=== PATIENT | female | born 1965 | race Caucasian/White ===

== ENCOUNTER 2020-02-07 23:05 | Inpatient (IN) ==
[2020-02-07] MEDS ORDERED: DUONEB (A & A) INH ONE (23:19)
--- NOTE | 2020-02-07 23:28 | PROVIDER DOCUMENTATION ---
HPI-Respiratory General - General Stated Complaint: SOB Time Seen by Provider: 02/07/20 23:14 Source: EMS, RN notes reviewed Unable to obtain history due to:: altered Allergies/Adverse Reactions: Patient Allergies Allergy/AdvReac Type Severity Reaction Status Date / Time diazepam [From Valium] Allergy Unknown Verified 08/11/19 00:28 Hydantoins Allergy Unknown Verified 08/11/19 00:28 Penicillins Allergy Unknown Verified 08/11/19 00:28 phenytoin [From Dilantin] Allergy Unknown Verified 08/11/19 00:28 promethazine [From Phenergan] Allergy Unknown Verified 08/11/19 00:28 simvastatin Allergy Unknown Verified 08/11/19 00:28 Sulfa (Sulfonamide Allergy Unknown Verified 08/11/19 00:28 Antibiotics) Home Medications: Home Medication List Medication Instructions Recorded Confirmed Last Taken Type Aspirin [Aspirin EC] 81 mg PO DAILY 08/11/19 02/08/20 09/22/19 07:00 History Estradiol [Estrace] 1 mg PO DAILY 08/11/19 02/08/20 09/22/19 07:00 History Ferrous Sulfate 325 mg PO HS 08/11/19 02/08/20 09/21/19 21:00 History Glimepiride 4 mg PO DAILY 08/11/19 02/08/20 09/22/19 07:00 History Levothyroxine Sodium [Tirosint] 50 mcg PO HS 08/11/19 02/08/20 09/21/19 21:00 History Meloxicam 15 mg PO DAILY 08/11/19 09/22/19 09/22/19 07:00 History Metformin HCl [Glucophage] 1,000 mg PO BID 08/11/19 02/08/20 09/22/19 07:00 History Pantoprazole Sodium [Protonix] 40 mg PO DAILY 08/11/19 09/22/19 09/22/19 07:00 History Sitagliptin Phosphate [Januvia] 100 mg PO DAILY 08/11/19 09/22/19 09/22/19 07:00 History Melatonin 5 mg PO QHS #30 tab 09/10/19 02/08/20 09/21/19 21:00 Rx Cholecalciferol (Vit D3) [Vitamin 2,000 unit PO DAILY tab 11/05/19 02/08/20 Unknown Rx D3] Cyanocobalamin [Vitamin B-12] 500 microgm PO DAILY tab 11/05/19 02/08/20 Unknown Rx Gabapentin [Neurontin] 800 mg PO BID 30 Days #120 cap 11/05/19 02/08/20 Unknown Rx Insulin Human Regular [Humulin R] 0 unit SUBQ 0700,1100,1600,2100 11/05/1902/07 Unknown Rx #10 ml Linaclotide [Linzess] 145 mcg PO DAILY@0700 #30 cap 11/05/19 02/08/20 Unknown Rx Metoprolol Succinate E.r. [Toprol 25 mg PO DAILY #30 tab 11/05/19 02/08/20 Unknown Rx Xl] Quetiapine [Seroquel] 200 mg PO QHS tab 11/05/19 Unknown Rx Tramadol [Ultram] 50 mg PO BID PRN PRN 30 Days #60 11/06/19 Unknown Rx tab Acetaminophen [Arthritis Pain 650 mg PO Q6H 02/08/20 02/08/20 Unknown History Relief] Albuterol 2.5MG/Ipratrop 0.5MG 2 puff INH Q4H 02/08/20 02/08/20 Unknown History [Duoneb (A & A)] Albuterol Sulfate Inhaler 2 puff INH Q6H PRN PRN 02/08/20 02/08/20 Unknown History [Ventolin Hfa] Benzocaine/Menthol [Cepacol Sore 1 cap PO PRN PRN 02/08/20 02/08/20 Unknown History Throat Lozenge] Bisacodyl [Dulcolax] 10 mg VT DAILY 02/08/20 02/08/20 Unknown History Cetirizine HCl [Zyrtec] 10 mg PO QHS 02/08/20 02/08/20 Unknown History Clozapine [Clozaril] 50 mg PO DAILY@1200 02/08/20 02/08/20 Unknown History Clozapine [Clozaril] 125 mg PO 1700 02/08/20 02/08/20 Unknown History Fluticasone 50 Mcg Nasal [place] 1 spray INTRANASAL DAILY 02/08/20 02/08/20 Unknown History [Flonase] Furosemide [Lasix] 1 tab PO DAILY 02/08/20 02/08/20 Unknown History Lamotrigine [Lamictal] 100 mg PO HS 02/08/20 02/08/20 Unknown History Lamotrigine [Lamictal] 100 mg PO QAM 02/08/20 02/08/20 Unknown History Mag Hydrox/Al Hydrox/Simeth 30 ml PO 4XDAY PRN 02/08/20 02/08/20 Unknown History [Maalox Plus] - History of Present Illness-Resp Nature of Presenting Problem: Pt is a 54 y/o female who is transferred from [facility] with c/o SOb since this morning. The pt is SOB and hx is obtained from the EMS and RN. Per EMS the pt has been SOB since today morning. Got a breathing treatment in the morning. The EMS is unaware of fever. On initial eval of EMS pt was saturating 74% on RA and with 15 L NR it was upto a 90%. Pt currently severely SOB with use of accessory muscles and crackles. On room air desaturated to 81% and with NR on 15 L back in 90's Review of Systems - Adult - REVIEW OF SYSTEMS - ADULT ROS:: unobtainable per condition Constitutional: reports: see HPI Past History - Adult - PAST MEDICAL HISTORY-ADULT Review of Records: reports: Old Records Reviewed, Nursing Assessment Review, Medications Reviewed, Social history reviewed & non-contributory. Physical Exam-General - PHYSICAL EXAM-ADULT Initial Vital Signs Reviewed: Yes - CONSTITUTIONAL General Appearance: moderate distress, obtunded - EYES Eyes: PERRL/EOMI - HEAD, EARS, NOSE, MOUTH & THROAT HENMT: normocephalic/atraumatic, moist mucous membranes - NECK Neck: supple - RESPIRATORY Respiratory: respiratory distress, decreased breath sounds, accessory muscle use , rhonchi, increased rate - CARDIOVASCULAR Cardiovascular: no murmur, tachycardia - GASTROINTESTINAL (ABDOMEN) Abdominal Exam: non tender, soft - MUSCULOSKELETAL Back Exam: normal inspection Extremity: normal inspection, no pedal edema Peripheral Pulses: dorsalis-pedis (R): 2+, dorsalis-pedis (L): 2+ - SKIN Integumentary: normal color, warm/dry - NEUROLOGIC Neurologic: no motor/sensory deficits - PSYCHIATRIC Psych/Mental Status: other (restless, unable to evaluate due to pt condition) Progress - PLAN OF CARE/RESULTS Progress/Plan/Lab Results: Vital Signs - 8 hr 02/07/20 23:08 02/07/20 23:20 02/07/20 23:45 Temperature Pulse Rate 123 H 138 H Respiratory Rate 30 H 20 Blood Pressure 105/74 131/112 O2 Sat by Pulse Oximetry 82 L 92 L 97 02/07/20 23:50 02/08/20 00:15 02/08/20 00:37 Temperature 101.3 F H Pulse Rate 131 H 132 H 129 H Respiratory Rate 30 H 31 H 27 H Blood Pressure 175/73 O2 Sat by Pulse Oximetry 100 100 100 02/08/20 00:39 02/08/20 00:45 02/08/20 01:15 Temperature Pulse Rate 130 H 133 H Respiratory Rate 28 H 28 H Blood Pressure 167/81 159/65 111/69 O2 Sat by Pulse Oximetry 100 100 02/08/20 01:45 02/08/20 02:15 02/08/20 02:52 Temperature 101.7 F H Pulse Rate 134 H 130 H 121 H Respiratory Rate 28 H 24 23 Blood Pressure 142/60 131/66 113/55 O2 Sat by Pulse Oximetry 100 100 100 02/08/20 03:15 02/08/20 03:45 Temperature Pulse Rate 120 H 115 H Respiratory Rate 24 20 Blood Pressure 111/58 106/52 O2 Sat by Pulse Oximetry 99 100 Laboratory Results - last 24 hr 02/07/20 02/07/20 02/07/20 23:15 23:15 23:15 WBC 8.26 RBC 4.28 Hgb 12.9 Hct 40.4 MCV 94.4 MCH 30.1 MCHC 31.9 L RDW Std Deviation 13.4 Plt Count 204 MPV 9.4 Immature Gran % (Auto) 0.5 Neut % (Auto) 81.0 H Lymph % (Auto) 6.7 L [place] % (Auto) 11.1 H Eos % (Auto) 0.6 Baso % (Auto) 0.1 Immature Gran # (Auto) 0.04 Neut # (Auto) 6.69 H Lymph # (Auto) 0.55 L [place] # (Auto) 0.92 H Eos # (Auto) 0.05 Baso # (Auto) 0.01 D-Dimer, Quantitative 1.05 H Specimen Type Sample Site pH pCO2 pO2 HCO3 Base Excess Oxyhemoglobin ABG O2 Sat (Calculated) ABG O2 Saturation ABG Carboxyhemoglobin ABG Methemoglobin Colby Test A-a O2 Difference Total Hemoglobin Lactate Liter Flow Blood Gas Modality Vent Mode FiO2 % Inspiratory BiPAP Expiratory BiPAP Sodium Potassium Chloride Carbon Dioxide Anion Gap BUN Creatinine Estimated GFR/1.73 m2 BUN/Creatinine Ratio Glucose Calculated Osmolality Calcium Total Bilirubin AST ALT Alkaline Phosphatase Creatine Kinase Creatine Kinase Index CK-MB (CK-2) Troponin T High Sens Ryr-[id number]-Ikpxmrvvxqv Pept Total Protein Albumin Globulin Albumin/Globulin Ratio Plasma Lactate 3.7 H 02/07/20 02/07/20 02/07/20 23:25 23:47 23:47 WBC RBC Hgb Hct MCV MCH MCHC RDW Std Deviation Plt Count MPV Immature Gran % (Auto) Neut % (Auto) Lymph % (Auto) [place] % (Auto) Eos % (Auto) Baso % (Auto) Immature Gran # (Auto) Neut # (Auto) Lymph # (Auto) [place] # (Auto) Eos # (Auto) Baso # (Auto) D-Dimer, Quantitative Specimen Type ARTERIAL Sample Site L RADIAL pH 7.38 pCO2 45 pO2 51 L HCO3 25.4 Base Excess 1.0 Oxyhemoglobin 85.9 L* ABG O2 Sat (Calculated) 15.7 ABG O2 Saturation 88.6 L ABG Carboxyhemoglobin 2.20 ABG Methemoglobin 0.8 Colby Test YES A-a O2 Difference 606.0 Total Hemoglobin 13.0 Lactate 4.00 H* Liter Flow 15.0 Blood Gas Modality NRB Vent Mode FiO2 % 100.0 Inspiratory BiPAP Expiratory BiPAP Sodium 132 L Potassium 4.4 Chloride 90 L Carbon Dioxide 26 Anion Gap 16 BUN 9 Creatinine 0.7 Estimated GFR/1.73 m2 > 60 BUN/Creatinine Ratio 13 Glucose 310 H Calculated Osmolality 275 Calcium 9.1 Total Bilirubin 0.30 AST 16 ALT 10 Alkaline Phosphatase 78 Creatine Kinase 397 H Creatine Kinase Index 0.4 CK-MB (CK-2) 1.66 Troponin T High Sens [id number]-Azjnxcykhbc Pept 424 H Total Protein 6.4 Albumin 3.9 Globulin 3.0 Albumin/Globulin Ratio 2.0 Plasma Lactate 02/07/20 02/08/20 23:47 02:45 WBC RBC Hgb Hct MCV MCH MCHC RDW Std Deviation Plt Count MPV Immature Gran % (Auto) Neut % (Auto) Lymph % (Auto) [place] % (Auto) Eos % (Auto) Baso % (Auto) Immature Gran # (Auto) Neut # (Auto) Lymph # (Auto) [place] # (Auto) Eos # (Auto) Baso # (Auto) D-Dimer, Quantitative Specimen Type ARTERIAL Sample Site L BRACHIAL pH 7.48 H pCO2 39 pO2 312 H HCO3 29.0 H Base Excess 5.2 H Oxyhemoglobin 96.5 ABG O2 Sat (Calculated) 17.9 ABG O2 Saturation 98.5 ABG Carboxyhemoglobin 0.80 ABG Methemoglobin 1.1 Colby Test NO A-a O2 Difference 352.0 Total Hemoglobin 12.6 Lactate 3.80 H Liter Flow Blood Gas Modality BI PAP Vent Mode BIPAP FiO2 % 100.0 Inspiratory BiPAP 14.0 Expiratory BiPAP 6.0 Sodium Potassium Chloride Carbon Dioxide Anion Gap BUN Creatinine Estimated GFR/1.73 m2 BUN/Creatinine Ratio Glucose Calculated Osmolality Calcium Total Bilirubin AST ALT Alkaline Phosphatase Creatine Kinase Creatine Kinase Index CK-MB (CK-2) Troponin T High Sens 10 Ddf-U-Vmidrixjlyh Pept Total Protein Albumin Globulin Albumin/Globulin Ratio Plasma Lactate Orders Category Date Time Status Admit - [facility] Routine [id number] 02/08/20 03:05 Active [place] Insertion ORDERED Care 02/08/20 00:04 Completed Isolation [Isolation Precautions Setup] NOW Care 02/08/20 00:51 Active Nursing [Misc. NRSG Communication Order] DIRECTED Care 02/08/20 00:31 Completed Restraint Initiate NonViolent ONCE Care 02/08/20 00:15 Active CHEST-1 VIEW [RAD] Stat Exams 02/07/20 23:15 Taken ABG [RESP] Routine Lab 02/07/20 23:25 Completed ABG [RESP] Routine Lab 02/08/20 02:45 Completed BLOOD CULTURE [BLDCUL] Stat Lab 02/07/20 23:19 Ordered C REACTIVE PROT QUANT [CHEM] Stat Lab 02/08/20 02:17 Received CBC WITH ELECTRONIC DIFF [HEME] Stat Lab 02/07/20 23:15 Completed CK PROFILE [SP CHEM] Stat Lab 02/07/20 23:47 Completed COMPREHENSIVE METABOLIC PANEL [CHEM] Stat Lab 02/07/20 23:47 Completed D-DIMER [COAG] Stat Lab 02/07/20 23:15 Completed FERRITIN Stat Lab 02/08/20 02:17 Received LACTATE, PLASMA [CHEM] Stat Lab 02/07/20 23:15 Completed LDH [CHEM] Stat Lab 02/08/20 02:17 Received NORFOLK COVID19 [NORFOLK] Routine Lab 02/08/20 00:45 Received PRO B-NATRIURETIC PEPTIDE Stat Lab 02/07/20 23:47 Completed TROPONIN T HIGH SENSITIVITY Stat Lab 02/07/20 23:47 Completed 0.9% Sodium Chloride Inj [Ns] 1,000 ml Med 02/08/20 03:15 Active IV 75 mls/hr 0.9% Sodium Chloride Inj [Ns] 1,000 ml Med 02/08/20 04:31 Active IV 75 mls/hr Acetaminophen [Tylenol] Med 02/08/20 01:00 Discontinued 650 mg VT NOW ONE Albuterol 2.5MG/Ipratrop 0.5MG [Duoneb (A & A)] Med 02/07/20 23:19 Discontinued 3 ml INH NOW ONE Enoxaparin [Lovenox] Med 02/08/20 02:07 Discontinued 40 mg SUBQ NOW ONE Furosemide [Lasix] Med 02/08/20 00:04 Discontinued 40 mg IV NOW ONE Ketorolac [Toradol] Med 02/08/20 02:16 Discontinued 30 mg IV NOW ONE Levofloxacin 750 mg/D5w [Levaquin 750 mg/D5w] Med 02/08/20 00:04 Discontinued 750 mg in 150 ml IV NOW Pharmacy Order [Vancomycin IV Per Pharmacy] Med 02/08/20 02:30 Pending 1 each MISC DIRECTED Vancomycin 1 gm/Ns Med 02/08/20 03:00 Active 1 gm in 250 ml IV Q2H Aerosol Treatments Routine Oth 02/07/20 23:20 Active Aerosol Treatments Stat Oth 02/07/20 23:20 Active BIPAP Stat Oth 02/07/20 23:20 Active Transfer/Admit Order [TRANSFER] Routine Transfer 02/08/20 03:16 Completed The ABG repeat showed pO2 310, FiO2 was decreased to 50% from 100%. Temp improving after toradol. Result Diagrams: 02/07/20 23:15 02/07/20 23:47 - CONSULTS/PCP/HOSPITALIST Notification #1 *Consult/PCP/Hospitalist*: pt d/w Dr Angelo Time Discussed: 02:30 Consult Disposition: Admit (recommended to repeat ABG and if O2 less consider intubation. If O2 improved can transfer on BiPAP) Departure - Departure Date of Disposition Decision: 04/17/20 Time of Disposition Decision: 02:45 DIAGNOSIS: Dyspnea, Respiratory failure with hypoxia, COPD with exacerbation, Suspected COVID-19 virus infection, Pneumonia due to organism Disposition: ADMITTED INPATIENT 09 Certified Medical Emergency: Emergent Condition: Stable - Critical Care Note This patient required my direct & personal management of CC.: Yes Total Time (mins): 55 Critical Care Statement: This patient required my direct personal management to treat or rule out processes, the absence of which, could potentiallly result in sudden, clinically significant life or limb threatening deterioration. Attestation - Physician/ BRENDA Attestation Patient care was provided by Advanced Practice Provider:: No The physician spent face to face time with patient:: Yes Advanced Practice Provider documentation review:: Supervising physician onsite and consulted in the evaluation and care of this patient. The physician did have a face to face encounter with the patient.
[2020-02-07 23:44] LABS: BASO# 0.01 X1000 (0.0-0.2); BASO% 0.1 % (0.0-0.8); EOS# 0.05 X1000 (0.0-0.7); EOS% 0.6 % (0.0-10.0); HEMATOCRIT 40.4 % (37.0-47.0); HEMOGLOBIN 12.9 g/dL (12.0-16.0); IMM GRAN# 0.04 X1000 (0.0-0.04); IMM GRAN% 0.5 % (0.0-0.5); LYMPH# 0.55 X1000 (1.2-3.4); LYMPH% 6.7 % (20.5-51.1); MCH 30.1 PG (27-31); MCHC 31.9 g/dL (33-37); MCV 94.4 FL (81-99); MONO# 0.92 X1000 (0.11-0.59); MONO% 11.1 % (1.7-9.3); MPV 9.4 FL (7.4-10.4); NEUT# 6.69 X1000 (1.4-6.5); PLT 204 X1000 (130-400); RBC 4.28 XMIL (4.2-5.4); RDW 13.4 % (11.5-14.5); WBC 8.26 X1000 (4.8-10.8)
[2020-02-08] MEDS ORDERED: LASIX IV ONE (00:04)
[2020-02-08] MEDS ORDERED: LEVAQUIN 750 MG/D5W 750 MG/150 ML IVPB IV ONE (00:04)
[2020-02-08 00:18] LABS: AGAP 16; ALBUMIN 3.9 g/dL (3.5-5.0); ALKALINE PHOSPHATASE 78 U/L (32-104); BUN 9 mg/dL (8-22); CALCIUM 9.1 mg/dL (8.8-10.2); CHLORIDE 90 mmol/L (98-107); COSMO 275; CREATININE 0.7 mg/dL (0.5-0.9); ESTIMATED GFR > 60; GLUCOSE 310 mg/dL (70-104); GOT 16 U/L (10-30); GPT 10 U/L (10-36); POTASSIUM 4.4 mmol/L (3.5-5.1); SODIUM 132 mmol/L (136-145); TCO2 26 mmol/L (25-35); TOTAL PROTEIN 6.4 g/dL (6.3-8.3)
[2020-02-08 00:19] LABS: CK PROFILE 397 U/L (24-173)
[2020-02-08 00:32] LABS: BLOOD TYPE ARTERIAL; HCO3-(ACT) 25.4 mmoll (20.0-26.0); METHB 0.8 % (0.0-1.5); O2(CT) 15.7 mL/dL (15.0-23.0); PCO2(98.6) 45 mmHg (35-45); PO2(98.6) 51 mmHg (60-100); SAMPLE BLOOD; SAO2 88.6 % (95.0-100.0); pH(98.6) 7.38 (7.35-7.45)
[2020-02-08 00:36] LABS: O2HB 85.9 % (95.0-99.0)
[2020-02-08 00:37] LABS: ALLEN TEST YES; MODALITY NRB
[2020-02-08 00:37] LABS: CK INDEX 0.4 (0.0-2.5); CK-MB 1.66 ng/mL (0.0-5.0)
[2020-02-08] MEDS ORDERED: TYLENOL PR ONE (01:00)
[2020-02-08] MEDS ORDERED: LOVENOX SUBQ ONE (02:07)
[2020-02-08] MEDS ORDERED: TORADOL IV ONE (02:16)
[2020-02-08] MEDS ORDERED: VANCOMYCIN IV PER PHARMACY MISC SCH (02:30)
[2020-02-08] MEDS: VANCOMYCIN 1 GM/NS 1 GM/250 ML IVPB IV SCH ×5 (02:34→16:36)
[2020-02-08 03:01] LABS: BE 5.2 mmoll (-3.0-3.0); BLOOD TYPE ARTERIAL; METHB 1.1 % (0.0-1.5); O2(CT) 17.9 mL/dL (15.0-23.0); O2HB 96.5 % (95.0-99.0); PCO2(98.6) 39 mmHg (35-45); PO2(98.6) 312 mmHg (60-100); SAMPLE BLOOD; SAO2 98.5 % (95.0-100.0); THB 12.6 g/dL (11.5-17.4); pH(98.6) 7.48 (7.35-7.45)
[2020-02-08 03:12] LABS: MODALITY BI PAP
[2020-02-08 03:13] LABS: ALLEN TEST NO
[2020-02-08] MEDS ORDERED: NS 1,000 ML IV SCH (03:15)
[2020-02-08] MEDS: NS 1,000 ML IV SCH ×2 (04:31→14:59)
[2020-02-08] MEDS: HUMALOG SUBQ SCH ×4 (06:59→21:19)
--- NOTE | 2020-02-08 07:09 | HISTORY AND PHYSICAL ---
PRIMARY CARE PROVIDER: None. CHIEF COMPLAINT: Low oxygen levels per [facility]. HISTORY OF PRESENT ILLNESS: Ms. Hodge is a 54-year-old female who presented from [facility] complaining of shortness of breath there yesterday morning. She was saturating 74% on room air. On 15 L, she was at 90%, and was using accessory muscles. When weaned off to room air, she desaturated to 81%. The patient was altered while she was at [facility], and was not able to give much information. She was pulling out her lines and had to be put in 4-point restraints. She was found to have a right lower lobe pneumonia and suspected for COVID-19 and was tested. She was placed on BiPAP with a special filter, and initiated on vancomycin and Levaquin due to her multiple allergies as well as treated with COPD exacerbation. Past medical history hard to obtain secondary to the patient being somewhat altered, but per previous [facility] notes. PAST MEDICAL HISTORY: Diabetes, anemia, hypothyroidism, and diabetic neuropathy. PAST SURGICAL HISTORY: Unknown. FAMILY HISTORY: Unknown. ALLERGIES: Valium, hydantoins, penicillin, Dilantin, Phenergan, simvastatin, and sulfa. MEDICATIONS: Home medications are currently being compiled. REVIEW OF SYSTEMS: Hard to obtain secondary to the patient's condition. PHYSICAL EXAMINATION: VITAL SIGNS: Temperature 97.7 degrees axillary, heart rate 108, respirations 24, blood pressure 94/49, and O2 is 97% on BiPAP. GENERAL: Ms. Hodge is a 54-year-old female who is lying in the bed in 4-point restraints. She does not really answer any questions, but in no acute distress. HEENT: Atraumatic, normocephalic. PERRL. NECK: Supple. Trachea midline. CARDIOVASCULAR: S1, S2 appreciated. No murmurs, gallops, or rubs noted. RESPIRATORY: There is some crepitus on the right, and decreased on the left. ABDOMEN: Appeared to be soft, nontender, and nondistended. Positive bowel sounds in 4 quadrants. EXTREMITIES: Lower extremities ,bilateral pedal pulses were palpable. NEUROLOGIC: Four-point restraints. The patient was awake and alert, but was not really responding again in 4-point restraints. LABORATORY DATA: White count 8, hemoglobin and hematocrit 12 and 40, and platelet count 204,000. D-dimer 1.05. ABGs 7.38 8, PCO2 45. P02 51. CHEMISTRY: Sodium 132, potassium 4.4, anion gap of 16, BUN 9, creatinine 0.7, blood glucose of 310, CK of 397, troponin of 10, proBNP of 424, and lactate of 37. ASSESSMENT AND PLAN: 1. Acute hypoxemic respiratory failure secondary to pneumonia and COPD exacerbation. Possible COVID-19. We will continue with BiPAP with a special filter and albuterol inhaler. Consult Pulmonology. 2. COVID-19 rule out. 3. Chronic obstructive pulmonary disease exacerbation. Continue on BiPAP and albuterol metered- dose inhalers. We will not do steroids at this time. We will await Pulmonology's recommendations. 4. Right lower lobe pneumonia. Continue with broad-spectrum antibiotics. 5. Sepsis rule in with a positive lactate. We will continue with vancomycin and Levaquin secondary to the patient's allergies. Continue to trend her lactate. 6. Diabetes mellitus with hyperglycemia. We will place her on sliding scale with pattern blood sugars. Last hemoglobin A1c in January was 6.7. 7. Anemia stable. 8. Hypothyroidism. 9. Diabetic neuropathy. Continue home medications when verified. 10. Mild hyponatremia. Continue with IV fluids. 11. Further recommendations to follow physician evaluation, laboratory, and diagnostic data. Dictated by ANDIE Fulton for Cecille Angelo MD cc: Cecille Angelo MD Independent exam and assessment was done by me at bedside with [employer] and discussed the above plan of care. Pt. is a very poor historian and a meaningful history could not be accurately be obtained; as such, pt will need to be ruled out for COVID. MTDD
--- NOTE | 2020-02-08 07:16 | Diag Imaging Result Doc PS360 ---
CHEST-1 VIEW - 02/07/2020 INDICATION: SOB COMPARISON: 01/28/2020 FINDINGS: Lung volumes are low. The lungs are clear. Heart size is normal. No pneumothorax or pleural effusion. IMPRESSION: Negative exam. Electronically signed by Oliver Mercer 02/08/2020 7:14 AM
[2020-02-08 08:00] LABS: C REACTIVE PROT QUANT 58.49 mg/L (0.00-5.00)
[2020-02-08] MEDS: VENTOLIN HFA INH SCH ×3 (08:02→21:26)
[2020-02-08] MEDS ORDERED: VENTOLIN HFA INH PRN (08:26)
[2020-02-08] MEDS ORDERED: LAMICTAL PO SCH (09:00)
[2020-02-08] MEDS ORDERED: NS 1,000 ML IV ONE ×2 (09:12)
[2020-02-08] MEDS: PATIENT'S OWN MED PO SCH ×3 (09:31→17:21)
[2020-02-08] MEDS: ASPIRIN EC PO SCH (09:33)
[2020-02-08] MEDS: DULCOLAX PR SCH ×2 (09:33→09:43)
[2020-02-08] MEDS: LAMICTAL PO SCH ×2 (09:33→21:20)
[2020-02-08] MEDS: NEURONTIN PO SCH ×2 (09:34→21:19)
[2020-02-08] MEDS: GLUCOPHAGE PO SCH (17:28)
[2020-02-08] MEDS: TOPROL XL PO SCH (17:37)
--- NOTE | 2020-02-08 18:50 | PULMONOLOGY CONSULTATION ---
DATE: 02/08/2020 REQUESTING PROVIDER: ANDIE Fulton. REASON FOR CONSULTATION: Suspected COVID-19, COPD, pneumonia. HISTORY OF PRESENT ILLNESS: This is a 54-year-old female who presented to the ER last night from [facility] with worsening shortness of breath, hypoxia and fever. Initial chest x-ray showed low lung volumes, but the lungs were clear with no pneumothorax or pleural effusion. Initial blood work showed elevated D-dimer at 1.05, hypoxemia with pO2 of 51 on non-rebreather 100%, hyperglycemia with glucose 310, elevated LDH at 267, elevated creatinine kinase at 397, elevated C-reactive protein at 58.49, elevated proBNP at 424, elevated plasma lactate at 3.7, and elevated arterial lactate at 4.0. The patient was initially desaturated in the ER on room air with tachycardia and tachypnea. Antibiotics, including Levaquin and vancomycin, have been started. COVID-19 was tested with results pending. Results of Blood cultures and Urine culture are pending. Sputum culture ordered, but is not collected yet. The patient eventually was put on BiPAP over night. ABG this morning showed pO2 of 312 on the BiPAP at 100% with pressure 14/6. The patient currently is on nasal cannula at 3 L with oxygen saturation at 100%. She is able to answer simple questions, but is a poor historian and it is hard to understand she is trying to tell most of time. She does report that she has had productive cough over 2 weeks, but she can not tell the color of the sputum. She denies any fever. She did have 2 episodes of fever in the ER up to 101.7 last night at 0252, per documentation. She reports sore throat. She denies shortness of breath, wheezing, chest pain, palpitation, pleurisy, hemoptysis, bowel habit change, or urination discomfort. She does report that she has "a little bit" of nausea and "a little bit" of stomachache at this time. She does have hoarseness during my encounter, but the patient cannot tell when this starts. She is complaining of chills at this time and asking for more blankets. PAST MEDICAL HISTORY: 1. Diabetes. 2. Anemia. 3. Hypothyroidism. 4. Diabetic neuropathy. 5. Schizoaffective disorder. 6. Anxiety. 7. Insomnia. PAST SURGICAL HISTORY: The patient does report she has had 3 big surgeries before, but she cannot tell them in detail. She states some of the surgery was related to her heart. FAMILY HISTORY: Unknown. SOCIAL HISTORY: Patient was x2. She has two sons and one of them is POA. She has no history of alcohol, tobacco or illicit drug use. She is a resident of [facility] prior to this admission. ALLERGIES: Valium, hydantoins, penicillin, Dilantin, Phenergan, simvastatin, and sulfa. REVIEW OF SYSTEMS: Limited as listed within the HPI. PHYSICAL EXAMINATION: Vital Signs: Temperature 97.6 degrees, blood pressure 166/92, pulse 116, respiratory rate 25, oxygen saturation 100% on nasal cannula at 3 L. The patient did have 2 episodes of fever up to 101.7 last night. General: Well developed. Appears appropriate to the stated age. Lying in bed. On 2-point restraint. No acute distress noted. The patient moves her legs constantly which, per the patient, is due to the chills. HEENT: Atraumatic, normocephalic. Trachea midline. Mucosa pink and moist. Pupils equal, round, and reactive to light. Respiratory: Mild tachypnea. No increased work of breathing noted. No accessory muscle use noted. Symmetrical excursion. Auscultation reveals diminished breathing sounds bilaterally, but no wheezing or crackle or rhonchi noted at this time. Cardiovascular: Sinus tachycardia with S1 and S2 appreciated. Gastrointestinal: Soft, nondistended. Mild generalized tenderness. Positive bowel sounds in all 4 quadrants. Extremities: No pedal edema. No cyanosis. No clubbing. Dorsalis pedis 2+ bilaterally. Neurologic: Alert and oriented x3 with confusion noted at times. Able to answer simple questions and follow simple commands. LABORATORY DATA: ABG: pH 7.48, pCO2 of 39, pO2 of 312, HC03 29.0, base excess 5.2, oxyhemoglobin 96.5. Lactate 3.80 on BiPAP with FiO2 of 100% and pressure 14/6 and plasma lactate 3.2. ASSESSMENT: This is a 54-year-old female who is a resident in [facility]. She has medical history of diabetes, anemia, hypothyroidism, diabetic neuropathy, schizoaffective disorder, anxiety, and insomnia. She has been admitted to [facility] today with acute hypoxemic respiratory failure with pneumonia, chronic obstructive pulmonary disease exacerbation, and possible coronavirus disease 2019 infection. 1. Acute hypoxemic respiratory failure secondary to possible pneumonia or bronchitis. Coronavirus disease-2019 was tested with results pending at this time. Improved significantly. The patient initially required NRB 100% and currently tolerates nasal cannula at 3 L. 2. Possible pneumonia or bronchitis. Broad-spectrum antibiotics have been started since admission. Sputum culture ordered. Coronavirus disease-2019 results are pending. The initial chest x-ray is negative. 3. Sepsis with elevated lactate, tachycardia, tachypnea, and fever at presentation. The results of blood culture and urine culture are pending. Fever under control at this time. Lactate slightly trending down. The patient also had mildly elevated LDH, CK, CRP, and D-dimer at presentation. Blood pressure was low at times, but currently has been elevated. The patient has been on fluid resuscitation with normal saline at 75 mL per hour. 4. Diabetes mellitus type 2 with hypoglycemia at presentation. Controlled. PLAN: 1. Continue supplemental oxygen as needed. We titrated oxygen to the patient's needs per clinical protocols. We will monitor the patient's response closely. We will follow up ABG and CXR if indicated. 2. Continue antibiotics, including vancomycin and Levaquin. We will monitor the patient's clinical and lab response closely. We will follow up CBC and CMP tomorrow. 3. We await the results of COVID-19. 4. Bronchodilator Ventolin inhaler has been initiated since admission. 5. Sputum culture ordered. 6. Further recommendation pending hospital course. Thank you for the courtesy of this consult. TOTAL EVALUATION TIME IN MINUTES: 34. Dictated by ANDIE Christianson for Efrain Boyd MD cc: ANDIE Christianson MD [facility]
[2020-02-08] MEDS: FERROUS SULFATE PO SCH (21:19)
[2020-02-08] MEDS: MELATONIN PO SCH (21:20)
[2020-02-08] MEDS: ZYRTEC PO SCH (21:20)
[2020-02-08] MEDS: TYLENOL PO PRN (21:38)
[2020-02-09] MEDS: LEVAQUIN 500 MG in NS 100 ML IV SCH (00:45)
[2020-02-09] MEDS: VENTOLIN HFA INH SCH ×3 (03:49→21:41)
[2020-02-09] MEDS: NS 1,000 ML IV SCH ×2 (05:14→17:57)
[2020-02-09] MEDS: VANCOMYCIN 1 GM/NS 1 GM/250 ML IVPB IV SCH ×2 (05:14→16:35)
[2020-02-09] MEDS: LINZESS PO SCH ×2 (05:14→07:31)
[2020-02-09] MEDS: HUMALOG SUBQ SCH ×4 (05:59→21:23)
--- NOTE | 2020-02-09 07:28 | Diag Imaging Result Doc PS360 ---
EXAM: CHEST-PORTABLE HISTORY: PNA TECHNIQUE: Single view COMPARISON: 02/07/2020 FINDINGS: Poor inspiratory effort. The heart is not enlarged. The vessels are not distended. There are no infiltrates. No effusion identified. IMPRESSION: Negative exam. Electronically signed by Roberto Carlos Hough 02/09/2020 7:26 AM
[2020-02-09] MEDS: GLUCOPHAGE PO SCH ×2 (09:33→16:35)
[2020-02-09] MEDS: ASPIRIN EC PO SCH (09:33)
[2020-02-09] MEDS: DULCOLAX PR SCH (09:33)
[2020-02-09] MEDS: NEURONTIN PO SCH ×2 (09:33→21:17)
[2020-02-09] MEDS: TOPROL XL PO SCH (09:34)
[2020-02-09] MEDS: LAMICTAL PO SCH ×2 (09:34→21:17)
[2020-02-09] MEDS: VITAMIN B-12 PO SCH (09:34)
[2020-02-09] MEDS: PATIENT'S OWN MED PO SCH ×3 (09:35→16:36)
[2020-02-09 10:44] LABS: BASO# 0.03 X1000 (0.0-0.2); BASO% 0.5 % (0.0-0.8); EOS# 0.02 X1000 (0.0-0.7); EOS% 0.3 % (0.0-10.0); HEMATOCRIT 35.5 % (37.0-47.0); IMM GRAN# 0.02 X1000 (0.0-0.04); IMM GRAN% 0.3 % (0.0-0.5); LYMPH# 0.65 X1000 (1.2-3.4); LYMPH% 11.3 % (20.5-51.1); MCH 30.1 PG (27-31); MCV 97.3 FL (81-99); MONO# 0.52 X1000 (0.11-0.59); MPV 8.7 FL (7.4-10.4); NEUT# 4.51 X1000 (1.4-6.5); NEUT% 78.6 % (42.2-75.2); PLT 178 X1000 (130-400); RBC 3.65 XMIL (4.2-5.4); RDW 13.9 % (11.5-14.5); WBC 5.75 X1000 (4.8-10.8)
[2020-02-09 11:23] LABS: AGAP 16; ALB/GLOB RATIO 0.9; ALBUMIN 2.7 g/dL (3.5-5.0); ALKALINE PHOSPHATASE 57 U/L (32-104); BUN 9 mg/dL (8-22); CALCIUM 8.3 mg/dL (8.8-10.2); CHLORIDE 101 mmol/L (98-107); COSMO 277; CREATININE 0.7 mg/dL (0.5-0.9); ESTIMATED GFR > 60; GLUCOSE 179 mg/dL (70-104); GOT 15 U/L (10-30); GPT 8 U/L (10-36); MAGNESIUM 1.7 mg/dL (1.5-2.7); POTASSIUM 4.1 mmol/L (3.5-5.1); SODIUM 137 mmol/L (136-145); TCO2 20 mmol/L (25-35); TOTAL BILIRUBIN 0.32 mg/dL (0.20-1.00); TOTAL PROTEIN 5.8 g/dL (6.3-8.3)
--- NOTE | 2020-02-09 11:32 | PROGRESS NOTE ---
DATE: 02/09/2020 SUBJECTIVE: Patient reports breathing better. Denies any fever or chills, or any chest pain or chest discomfort. OBJECTIVE: Vital Signs: Temperature 97.8 degrees, heart rate 115, respiratory rate 28, blood pressure 105/57, O2 saturation 97% on 3 L nasal cannula. General: This is a chronically ill- looking, 54-year-old, female lying in bed in no acute distress. Cardiovascular: S1, S2 heard. No murmurs, gallops, or rubs. Regular rate and rhythm. Respiratory: Crackles noted in the right pulmonary base but she is not using any accessory muscles or work of breathing. Abdomen: Soft, nontender to palpation. Bowel sounds present. No organomegaly. Extremities: No clubbing, cyanosis, or edema. Peripheral pulses present in both legs. Neurological: Patient is alert and oriented x3. Moves 4 extremities. LABORATORY DATA: White cell count 5.75, hemoglobin 11.6, hematocrit 35.5, platelets 178,000. There is no BMP available, no ABG. ASSESSMENT AND PLAN: 1. Acute hypoxemic respiratory failure secondary to pneumonia and chronic obstructive pulmonary disease exacerbation. We will continue with current antibiotic management. We are using Albuterol inhaler and because of respiratory symptoms we have ordered Coronavirus disease 2019 test. Pulmonary has been consulted. We will follow recommendations. 2. Chronic obstructive pulmonary disease exacerbation. We will continue as we mentioned before with BiPAP. We will not to steroids at this time. 3. Right lower lobe pneumonia. We will continue with current antibiotic management. 4. Sepsis. With positive lactate will continue with vancomycin and Levaquin. 5. Diabetes mellitus type 2. We will continue with sliding scale insulin. Accu-Cheks before meals and also at bedtime and morning. 6. Hypothyroidism is stable. 7. Diabetic neuropathy. We will continue home medications. 8. Disposition. We will continue to monitor this patient closely. cc: Mainor Barbosa MD
[2020-02-09 11:36] LABS: ALLEN TEST YES; BE 0.1 mmoll (-3.0-3.0); BLOOD TYPE ARTERIAL; O2(CT) 15.2 mL/dL (15.0-23.0); O2HB 96.4 % (95.0-99.0); PCO2(98.6) 39 mmHg (35-45); PO2(98.6) 90 mmHg (60-100); SAMPLE BLOOD; SAO2 98.4 % (95.0-100.0); THB 11.1 g/dL (11.5-17.4); pH(98.6) 7.41 (7.35-7.45)
[2020-02-09 11:37] LABS: MODALITY CANNULA
[2020-02-09] MEDS: TYLENOL PO PRN (16:35)
--- NOTE | 2020-02-09 17:42 | PROVIDER PROGRESS NOTE ---
Progress Note Dr. Boyd Progress Note/Pulmonary and or critical care Subjective: Patient is lying in bed on NC 3L with no acute distress noted. She is complaining of some nausea at this time. She also reports of on-going diarrhea during my encounter and asks for clean-up. RN at the bedside reports patient was agitated with some behavior issue this morning. Input was appreciated from Dr. Myers and other teams on the case. Objective: Vital Signs: T 97.8 (fever with T-max 100.5 in last 24 hours), HI 115, RR 28, BP 105/57 and SaO2 95% on NC 3L. Physical Examination: General: Lying in bed with no acute distress noted. HEENT: Atraumatic. Normocephalic. Trachea midline. Mucosa pink and moist. PERRL. Respiratory: Mild tachypnea. No increased work of breathing or accessory muscle use noted. Symmetrical excursion. Auscultation reveals improving air entry bilaterally. No wheezing or crackle or rhonchi noted at this time. Cardiovascular: Sinus tachycardia with S1 and S2 appreciated. Gastrointestinal: Soft. Nontender. Nondistended. Normoactive bowel sounds in all 4 quadrants. Extremities: No pedal edema. No clubbing or cyanosis noted. Neurologic: Awake and alert. Answer simple questions. Follow simple commands. Labs and Radiology: Laboratory Results 02/08/20 02/08/20 02/09/20 00:45 21:17 05:20 WBC RBC Hgb Hct MCV MCH MCHC RDW Std Deviation Plt Count MPV Immature Gran % (Auto) Neut % (Auto) Lymph % (Auto) [place] % (Auto) Eos % (Auto) Baso % (Auto) Immature Gran # (Auto) Neut # (Auto) Lymph # (Auto) [place] # (Auto) Eos # (Auto) Baso # (Auto) Specimen Type Sample Site pH pCO2 pO2 HCO3 Base Excess Oxyhemoglobin ABG O2 Sat (Calculated) ABG O2 Saturation ABG Carboxyhemoglobin ABG Methemoglobin [place] Test A-a O2 Difference Total Hemoglobin Lactate Liter Flow Blood Gas Modality FiO2 % Sodium Potassium Chloride Carbon Dioxide Anion Gap BUN Creatinine Estimated GFR/1.73 m2 BUN/Creatinine Ratio Glucose POC Glucose 204 H 105 H Calculated Osmolality Calcium Magnesium Total Bilirubin AST ALT Alkaline Phosphatase Total Protein Albumin Globulin Albumin/Globulin Ratio Coronavirus (PCR) SEE COMMENTS 02/09/20 02/09/2020 10:27 10:27 11:27 WBC 5.75 RBC 3.65 L Hgb 11.0 L Hct 35.5 L MCV 97.3 MCH 30.1 MCHC 31.0 L RDW Std Deviation 13.9 Plt Count 178 MPV 8.7 Immature Gran % (Auto) 0.3 Neut % (Auto) 78.6 H Lymph % (Auto) 11.3 L [place] % (Auto) 9.0 Eos % (Auto) 0.3 Baso % (Auto) 0.5 Immature Gran # (Auto) 0.02 Neut # (Auto) 4.51 Lymph # (Auto) 0.65 L [place] # (Auto) 0.52 Eos # (Auto) 0.02 Baso # (Auto) 0.03 Specimen Type ARTERIAL Sample Site L RADIAL pH 7.41 pCO2 39 pO2 90 HCO3 25.0 Base Excess 0.1 Oxyhemoglobin 96.4 ABG O2 Sat (Calculated) 15.2 ABG O2 Saturation 98.4 ABG Carboxyhemoglobin 1.00 ABG Methemoglobin 1.0 [place] Test YES A-a O2 Difference 89.0 Total Hemoglobin 11.1 L Lactate 0.90 Liter Flow 3.0 Blood Gas Modality [place] FiO2 % 32.0 Sodium 137 Potassium 4.1 Chloride 101 Carbon Dioxide 20 L Anion Gap 16 BUN 9 Creatinine 0.7 Estimated GFR/1.73 m2 > 60 BUN/Creatinine Ratio 13 Glucose 179 H POC Glucose Calculated Osmolality 277 Calcium 8.3 L Magnesium 1.7 Total Bilirubin 0.32 AST 15 ALT 8 L Alkaline Phosphatase 57 Total Protein 5.8 L Albumin 2.7 L Globulin 3.1 Albumin/Globulin Ratio 0.9 Coronavirus (PCR) 02/09/20 16:34 WBC RBC Hgb Hct MCV MCH MCHC RDW Std Deviation Plt Count MPV Immature Gran % (Auto) Neut % (Auto) Lymph % (Auto) [place] % (Auto) Eos % (Auto) Baso % (Auto) Immature Gran # (Auto) Neut # (Auto) Lymph # (Auto) [place] # (Auto) Eos # (Auto) Baso # (Auto) Specimen Type Sample Site pH pCO2 pO2 HCO3 Base Excess Oxyhemoglobin ABG O2 Sat (Calculated) ABG O2 Saturation ABG Carboxyhemoglobin ABG Methemoglobin [place] Test A-a O2 Difference Total Hemoglobin Lactate Liter Flow Blood Gas Modality FiO2 % Sodium Potassium Chloride Carbon Dioxide Anion Gap BUN Creatinine Estimated GFR/1.73 m2 BUN/Creatinine Ratio Glucose POC Glucose 170 H D Calculated Osmolality Calcium Magnesium Total Bilirubin AST ALT Alkaline Phosphatase Total Protein Albumin Globulin Albumin/Globulin Ratio Coronavirus (PCR) Assessment: Acute hypoxemic respiratory failure secondary to possible pneumonia or bronchitis. COVID-19 negative. Improved. Possible pneumonia or bronchitis. Sputum culture pending. COVID-19 negative. CXR this morning is negative. Sepsis with elevated lactate, tachycardia, tachypnea, and fever at presentation. The results of blood culture are pending. Urine culture on 02/08/20 so far has no growth. Diabetes mellitus type 2 with hyperglycemia at presentation. Controlled. Plan: Continue supplemental oxygen as needed. We titrated oxygen to patients needs per clinical protocols. We will monitor patients response closely and adjust accordingly. We follow up ABG. Continue antibiotics including Levaquin and Vancomycin. We will monitor patients clinical and lab response closely. Continue bronchodilators to promote pulmonary hygiene. Awaiting the final results of blood cultures and urine cultures. We re-order stat sputum culture. Transfer to floor planning.
[2020-02-09] MEDS: MELATONIN PO SCH (21:17)
[2020-02-09] MEDS: FERROUS SULFATE PO SCH (21:17)
[2020-02-09] MEDS: ZYRTEC PO SCH (21:17)
[2020-02-10] MEDS: LEVAQUIN 500 MG in NS 100 ML IV SCH (01:23)
[2020-02-10] MEDS: TYLENOL PO PRN (03:32)
[2020-02-10] MEDS: ZOFRAN IV PRN ×2 (03:33→17:41)
[2020-02-10] MEDS: VANCOMYCIN 1 GM/NS 1 GM/250 ML IVPB IV SCH (03:33)
[2020-02-10] MEDS: VENTOLIN HFA INH SCH ×2 (03:39→12:14)
[2020-02-10] MEDS ORDERED: XOPENEX NEB INH PRN (03:45)
[2020-02-10] MEDS ORDERED: NS NEB INH SCH (03:45)
[2020-02-10] MEDS ORDERED: XOPENEX NEB INH ONE (03:45)
[2020-02-10] MEDS ORDERED: MUCINEX PO ONE (03:45)
[2020-02-10] MEDS: LINZESS PO SCH (06:02)
[2020-02-10] MEDS: NS 1,000 ML IV SCH (06:02)
[2020-02-10] MEDS: HUMALOG SUBQ SCH ×4 (06:44→21:02)
[2020-02-10 07:05] LABS: BASO# 0.01 X1000 (0.0-0.2); BASO% 0.2 % (0.0-0.8); EOS# 0.01 X1000 (0.0-0.7); EOS% 0.2 % (0.0-10.0); HEMATOCRIT 36.3 % (37.0-47.0); HEMOGLOBIN 11.4 g/dL (12.0-16.0); IMM GRAN# 0.02 X1000 (0.0-0.04); IMM GRAN% 0.4 % (0.0-0.5); LYMPH# 0.33 X1000 (1.2-3.4); LYMPH% 6.4 % (20.5-51.1); MCH 29.8 PG (27-31); MCHC 31.4 g/dL (33-37); MCV 94.8 FL (81-99); MONO# 0.41 X1000 (0.11-0.59); NEUT# 4.35 X1000 (1.4-6.5); NEUT% 84.8 % (42.2-75.2); PLT 171 X1000 (130-400); RBC 3.83 XMIL (4.2-5.4); RDW 13.3 % (11.5-14.5); WBC 5.13 X1000 (4.8-10.8)
[2020-02-10 07:35] LABS: AGAP 20; ALBUMIN 3.3 g/dL (3.5-5.0); BUN 6 mg/dL (8-22); CALCIUM 8.4 mg/dL (8.8-10.2); CHLORIDE 99 mmol/L (98-107); COSMO 284; CREATININE 0.7 mg/dL (0.5-0.9); ESTIMATED GFR > 60; GLUCOSE 320 mg/dL (70-104); PHOSPHORUS 2.6 mg/dL (2.7-4.5); POTASSIUM 4.1 mmol/L (3.5-5.1); SODIUM 137 mmol/L (136-145); TCO2 18 mmol/L (25-35)
[2020-02-10] MEDS: VITAMIN B-12 PO SCH (08:06)
[2020-02-10] MEDS: NEURONTIN PO SCH ×2 (08:06→22:38)
[2020-02-10] MEDS: GLUCOPHAGE PO SCH ×2 (08:06→17:03)
[2020-02-10] MEDS: TOPROL XL PO SCH (08:06)
[2020-02-10] MEDS: ASPIRIN EC PO SCH (08:06)
[2020-02-10] MEDS: LAMICTAL PO SCH ×2 (08:07→22:37)
[2020-02-10] MEDS: MUCINEX PO SCH ×2 (08:07→22:37)
[2020-02-10] MEDS: PATIENT'S OWN MED PO SCH ×3 (08:08→17:04)
[2020-02-10] MEDS: DULCOLAX PR SCH (08:08)
[2020-02-10] MEDS ORDERED: HALL'S COUGH LOZENGE MT ONE (08:16)
[2020-02-10 09:19] LABS: ALLEN TEST YES; BE -4.8 mmoll (-3.0-3.0); BLOOD TYPE ARTERIAL; HCO3-(ACT) 21.1 mmoll (20.0-26.0); METHB 0.9 % (0.0-1.5); O2(CT) 14.6 mL/dL (15.0-23.0); O2HB 91.2 % (95.0-99.0); PCO2(98.6) 38 mmHg (35-45); PO2(98.6) 54 mmHg (60-100); SAMPLE BLOOD; THB 11.4 g/dL (11.5-17.4); pH(98.6) 7.34 (7.35-7.45)
[2020-02-10 09:20] LABS: MODALITY CANNULA
[2020-02-10] MEDS ORDERED: XOPENEX NEB INH SCH (10:00)
--- NOTE | 2020-02-10 10:08 | PROGRESS NOTE ---
DATE: 02/10/2020 SUBJECTIVE: I was paged by the nurse this morning, informing me that there has been a change in the clinical situation of this patient. I went immediately to see this patient and she was definitely more confused, tachypneic, febrile, diaphoretic. We checked blood sugar and that has been 227. Definitely lethargic. Requiring definitely much more oxygen supplementation. OBJECTIVE: Vital Signs: Temperature 101.7 degrees, heart rate 132, respiratory rate 32, blood pressure 190/70, O2 saturation 95% on 5 L nasal cannula. General Examination: This is a 54-year- old, female lying in bed, in no acute distress. Cardiovascular Examination: S1 and S2 heard. Tachycardic. No murmurs, gallops, or rubs noted. Respiratory Examination: Coarse breath sounds and rhonchi noted all over both pulmonary de paz, definitely much worse in comparing with yesterday. Patient is not using any accessory muscles or having work of breathing. Abdomen: Soft, nontender to palpation. Bowel sounds present. No organomegaly. Extremities: No clubbing, cyanosis, or edema. Peripheral pulses present in both legs. Neurological Examination: The patient is definitely more lethargic. Does not answer any questions at this point. Moves 4 extremities spontaneously. Laboratory Data: White cell count 5.13, hemoglobin 11.4, hematocrit 36.3, platelets 171,000. ABG that shows pH of 7.34, with pCO2 of 38, and PO2 of 54 on FiO2 of 40%, with a BMP that shows glucose of 320, calcium 8.4. ASSESSMENT AND PLAN: 1. Acute hypoxemic respiratory failure secondary to aspiration pneumonia and chronic obstructive pulmonary disease. Clinically, this patient started getting worse. The patient started feeling more lethargic and tachypneic and febrile. We tested her for Covid-19 and the result returned negative. Physical examination disclosed more rhonchi all over. At this point, I am planning to transfer this patient to the intensive care unit. I am going to check a CT angiogram of the chest to look for lung anatomy and any possible blood clot that could explain why this patient started this new onset shortness of breath. Currently, this patient is on vancomycin and Levaquin. I will add meropenem to her current treatment, consider the possibility of aspiration. Pulmonary has been consulted already. We will follow their recommendations. 2. Chronic obstructive pulmonary disease exacerbation. Now that patient returned negative for Covid-19, we are going to start levalbuterol, Atrovent every 4 hours as scheduled. 3. Right lower lobe pneumonia. We will continue with antibiotics as mentioned above. 4. Sepsis. The patient is febrile, tachycardic, tachypneic. Blood cultures still pending. We will continue with the same management. 5. Diabetes mellitus type 2. We will continue with sliding scale insulin, and Accu-Cheks before meals and also at bedtime. 6. Hypothyroidism. We will continue with home medications. 7. Diabetic neuropathy. We will continue with Neurontin. 8. Disposition. The patient is going to be transferred to the intensive care unit. 9. Critical care time, 40 minutes. cc: Mainor Barbosa MD
--- NOTE | 2020-02-10 10:39 | Diag Imaging Result Doc PS360 ---
EXAM: CT ANGIOGRAM PULMONARY ARTERIES - 02/10/2020 HISTORY: sob, suspected PE TECHNIQUE: CT angiogram pulmonary arteries with intravenous contrast. Axial, coronal, and 3-D MIP images are obtained. COMPARISON: 02/09/2020 portable chest radiograph FINDINGS: There are artifacts from motion which limit detail. There are apparent filling defects at the posterior right lower lobe and posterior left lower lobe pulmonary arteries. However, it is possible that these could be artifactual from motion. There is no indication of aortic dissection. There is infiltrate at the right lower lobe. There is dependent atelectasis of the bilateral lower lobes. There is a tiny left pleural effusion. There is no evidence of pneumothorax. IMPRESSION: Questionable pulmonary emboli at bilateral posterior lower lobes versus artifacts from motion. Right lower lobe pneumonia. Bilateral dependent atelectasis. Electronically signed by Edison Vuong 02/10/2020 10:37 AM
[2020-02-10] MEDS: MERREM 1 GM in NS 50 ML IV SCH ×2 (10:49→17:07)
[2020-02-10] MEDS ORDERED: COMBIVENT RESPIMAT INHALER INH SCH (11:30)
[2020-02-10] MEDS: ATROVENT NEB INH SCH ×3 (12:08→23:35)
[2020-02-10] MEDS: XOPENEX NEB INH SCH ×4 (12:08→23:35)
[2020-02-10] MEDS: LOVENOX SUBQ SCH (15:48)
[2020-02-10] MEDS: LOPRESSOR IV SCH ×2 (15:49→22:13)
[2020-02-10] MEDS: NS IV SCH ×2 (15:49→22:13)
[2020-02-10] MEDS ORDERED: OFIRMEV 1000 MG/ISOTONIC SOLN 1,000 MG/100 ML BOTTLE IV PRN (16:11)
--- NOTE | 2020-02-10 17:05 | PROVIDER PROGRESS NOTE ---
Progress Note Dr. Boyd Progress Note/Pulmonary and or critical care Subjective: Patient apparently developed severe SOB and she is in ICU at this time. She is awake and alert. She gets upset easily. When she upsets, her RR and HR go up to 30s and 130s. She has occasionaly dry cough during my encounter. Input was appreciated from Dr. Myers and other teams on the case. Objective: Vital Signs: T 101.2 (recurrent fever with T-max 101.7 in last 24 hours), [place] 120, RR 29, BP 144/60 and SaO2 95% on NC 6L. Physical Examination: General: Lying in bed with acute cardiac and respiratory distress noted. HEENT: Atraumatic. Normocephalic. Trachea midline. Mucosa pink and moist. PERRL. Respiratory: Tachypnea. Increased work of breathing, but no accessory muscle use noted. Symmetrical excursion. Auscultation reveals improving air entry bilaterally. No wheezing or crackle or rhonchi noted at this time. Cardiovascular: Tachycardia with S1 and S2 appreciated. Gastrointestinal: Soft. Nontender. Nondistended. Normoactive bowel sounds in all 4 quadrants. Extremities: No pedal edema. No clubbing or cyanosis noted. Neurologic: Awake and alert. Anxious at times. Answer simple questions. Follow simple commands. Labs and Radiology: Laboratory Results 02/09/20 02/09/20 02/09/20 11:14 16:34 21:20 WBC RBC Hgb Hct MCV MCH MCHC RDW Std Deviation Plt Count MPV Immature Gran % (Auto) Neut % (Auto) Lymph % (Auto) [place] % (Auto) Eos % (Auto) Baso % (Auto) Immature Gran # (Auto) Neut # (Auto) Lymph # (Auto) [place] # (Auto) Eos # (Auto) Baso # (Auto) Specimen Type Sample Site pH pCO2 pO2 HCO3 Base Excess Oxyhemoglobin ABG O2 Sat (Calculated) ABG O2 Saturation ABG Carboxyhemoglobin ABG Methemoglobin [place] Test A-a O2 Difference Total Hemoglobin Lactate Liter Flow Blood Gas Modality FiO2 % Sodium Potassium Chloride Carbon Dioxide Anion Gap BUN Creatinine Estimated GFR/1.73 m2 BUN/Creatinine Ratio Glucose POC Glucose 178 H D 170 H 187 H Calculated Osmolality Calcium Phosphorus Troponin T High Sens Albumin Random Vancomycin 02/10/20 02/10/20 02/10/20 06:23 06:40 06:40 WBC 5.13 RBC 3.83 L Hgb 11.4 L Hct 36.3 L MCV 94.8 MCH 29.8 MCHC 31.4 L RDW Std Deviation 13.3 Plt Count 171 MPV 9.0 Immature Gran % (Auto) 0.4 Neut % (Auto) 84.8 H Lymph % (Auto) 6.4 L [place] % (Auto) 8.0 Eos % (Auto) 0.2 Baso % (Auto) 0.2 Immature Gran # (Auto) 0.02 Neut # (Auto) 4.35 Lymph # (Auto) 0.33 L [place] # (Auto) 0.41 Eos # (Auto) 0.01 Baso # (Auto) 0.01 Specimen Type Sample Site pH pCO2 pO2 HCO3 Base Excess Oxyhemoglobin ABG O2 Sat (Calculated) ABG O2 Saturation ABG Carboxyhemoglobin ABG Methemoglobin [place] Test A-a O2 Difference Total Hemoglobin Lactate Liter Flow Blood Gas Modality FiO2 % Sodium 137 Potassium 4.1 Chloride 99 Carbon Dioxide 18 L Anion Gap 20 BUN 6 L Creatinine 0.7 Estimated GFR/1.73 m2 > 60 BUN/Creatinine Ratio 9 Glucose 320 H D POC Glucose 324 H D Calculated Osmolality 284 Calcium 8.4 L Phosphorus 2.6 L Troponin T High Sens Albumin 3.3 L Random Vancomycin 02/10/20 02/10/20 02/10/20 06:40 09:10 09:35 WBC RBC Hgb Hct MCV MCH MCHC RDW Std Deviation Plt Count MPV Immature Gran % (Auto) Neut % (Auto) Lymph % (Auto) [place] % (Auto) Eos % (Auto) Baso % (Auto) Immature Gran # (Auto) Neut # (Auto) Lymph # (Auto) [place] # (Auto) Eos # (Auto) Baso # (Auto) Specimen Type ARTERIAL Sample Site R RADIAL pH 7.34 L pCO2 38 pO2 54 L HCO3 21.1 Base Excess -4.8 L Oxyhemoglobin 91.2 L ABG O2 Sat (Calculated) 14.6 L ABG O2 Saturation 93.0 L ABG Carboxyhemoglobin 1.00 ABG Methemoglobin 0.9 [place]by Test YES A-a O2 Difference 184.0 Total Hemoglobin 11.4 L Lactate 3.20 H Liter Flow 5.0 Blood Gas Modality CANNULA FiO2 % 40.0 Sodium Potassium Chloride Carbon Dioxide Anion Gap BUN Creatinine Estimated GFR/1.73 m2 BUN/Creatinine Ratio Glucose POC Glucose 217 H Calculated Osmolality Calcium Phosphorus Troponin T High Sens 13 Albumin Random Vancomycin 02/10/20 02/10/20 16:00 16:00 WBC RBC Hgb Hct MCV MCH MCHC RDW Std Deviation Plt Count MPV Immature Gran % (Auto) Neut % (Auto) Lymph % (Auto) [place] % (Auto) Eos % (Auto) Baso % (Auto) Immature Gran # (Auto) Neut # (Auto) Lymph # (Auto) [place] # (Auto) Eos # (Auto) Baso # (Auto) Specimen Type Sample Site pH pCO2 pO2 HCO3 Base Excess Oxyhemoglobin ABG O2 Sat (Calculated) ABG O2 Saturation ABG Carboxyhemoglobin ABG Methemoglobin [place] Test A-a O2 Difference Total Hemoglobin Lactate Liter Flow Blood Gas Modality FiO2 % Sodium Potassium Chloride Carbon Dioxide Anion Gap BUN Creatinine Estimated GFR/1.73 m2 BUN/Creatinine Ratio Glucose POC Glucose Calculated Osmolality Calcium Phosphorus Troponin T High Sens 12 Albumin Random Vancomycin 8.80 Assessment: Acute hypoxemic respiratory failure secondary to pneumonia. COVID-19 negative. Worsened. Pneumonia. Sputum culture pending. COVID-19 negative. CTPA this morning shows questionable pulmonary emboli at bilateral posterior lower lobes vs. artifacts from motion, RLL pneumonia and bilateral dependent atelectasis. questionable pulmonary emboli. Sepsis with elevated lactate, tachycardia, tachypnea, and fever at presentation. Blood cultures on 02/07/20 have no growth after 48 hours. Urine culture on 02/08/20 has no growth. Diabetes mellitus type 2 with hyperglycemia at presentation. Plan: Continue supplemental oxygen as needed. We titrated oxygen to patients needs per clinical protocols. We will monitor patients response closely and adjust accordingly. We follow up ABG. Continue antibiotics including Levaquin and Vancomycin. Meropenem added today. We will monitor patients clinical and lab response closely. Continue bronchodilators to promote pulmonary hygiene. We add Mucomyst at this time. Sputum culture pending. Enoxaparin started at 40mg q24h. Total evaluation time in minutes: 31.
[2020-02-10] MEDS: VANCOMYCIN 1,600 MG in NS 250 ML IV SCH (17:41)
[2020-02-10] MEDS: MUCOMYST 20% INH SCH (20:04)
[2020-02-10] MEDS: FERROUS SULFATE PO SCH (22:36)
[2020-02-10] MEDS: MELATONIN PO SCH (22:37)
[2020-02-11] MEDS: LEVAQUIN 500 MG in NS 100 ML IV SCH (00:49)
[2020-02-11] MEDS: LOPRESSOR IV SCH ×4 (02:43→21:06)
[2020-02-11] MEDS: NS IV SCH ×4 (02:43→21:06)
[2020-02-11] MEDS: MERREM 1 GM in NS 50 ML IV SCH ×3 (02:44→18:38)
[2020-02-11] MEDS: VANCOMYCIN 1,600 MG in NS 250 ML IV SCH ×2 (04:13→16:58)
[2020-02-11] MEDS: NS 1,000 ML IV SCH ×4 (04:14→22:09)
[2020-02-11 05:16] LABS: ALLEN TEST YES; BE 0.5 mmoll (-3.0-3.0); BLOOD TYPE ARTERIAL; HCO3-(ACT) 25.3 mmoll (20.0-26.0); METHB 1.1 % (0.0-1.5); O2HB 96.8 % (95.0-99.0); PCO2(98.6) 41 mmHg (35-45); PO2(98.6) 139 mmHg (60-100); SAMPLE BLOOD; SAO2 98.6 % (95.0-100.0); THB 11.6 g/dL (11.5-17.4)
[2020-02-11 05:17] LABS: MODALITY CANNULA
[2020-02-11 05:34] LABS: BASO# 0.01 X1000 (0.0-0.2); BASO% 0.1 % (0.0-0.8); EOS# 0.01 X1000 (0.0-0.7); EOS% 0.1 % (0.0-10.0); HEMOGLOBIN 10.7 g/dL (12.0-16.0); IMM GRAN# 0.02 X1000 (0.0-0.04); IMM GRAN% 0.3 % (0.0-0.5); LYMPH% 13.2 % (20.5-51.1); MCH 29.7 PG (27-31); MCHC 31.5 g/dL (33-37); MCV 94.4 FL (81-99); MONO# 0.41 X1000 (0.11-0.59); MONO% 5.4 % (1.7-9.3); MPV 9.2 FL (7.4-10.4); NEUT# 6.15 X1000 (1.4-6.5); NEUT% 80.9 % (42.2-75.2); PLT 175 X1000 (130-400); RDW 13.3 % (11.5-14.5)
[2020-02-11] MEDS ORDERED: APRESOLINE IV PRN (05:35)
[2020-02-11 06:09] LABS: AGAP 13; ALBUMIN 2.6 g/dL (3.5-5.0); BUN 6 mg/dL (8-22); CALCIUM 8.3 mg/dL (8.8-10.2); CHLORIDE 103 mmol/L (98-107); COSMO 280; CREATININE 0.5 mg/dL (0.5-0.9); ESTIMATED GFR > 60; GLUCOSE 144 mg/dL (70-104); PHOSPHORUS 2.6 mg/dL (2.7-4.5); POTASSIUM 3.7 mmol/L (3.5-5.1); SODIUM 140 mmol/L (136-145); TCO2 24 mmol/L (25-35)
[2020-02-11] MEDS: HUMALOG SUBQ SCH ×4 (06:10→20:45)
[2020-02-11] MEDS: LINZESS PO SCH (06:10)
[2020-02-11] MEDS: GLUCOPHAGE PO SCH ×2 (07:35→16:55)
[2020-02-11] MEDS: ASPIRIN EC PO SCH (08:11)
[2020-02-11] MEDS: DULCOLAX PR SCH (08:11)
[2020-02-11] MEDS: VITAMIN B-12 PO SCH (08:11)
[2020-02-11] MEDS: LAMICTAL PO SCH ×2 (08:11→20:06)
[2020-02-11] MEDS: MUCINEX PO SCH ×2 (08:12→20:06)
[2020-02-11] MEDS: TOPROL XL PO SCH (08:12)
[2020-02-11] MEDS: NEURONTIN PO SCH ×2 (08:12→20:06)
[2020-02-11] MEDS: XOPENEX NEB INH SCH ×4 (08:42→19:21)
[2020-02-11] MEDS: ATROVENT NEB INH SCH ×5 (08:42→19:21)
[2020-02-11] MEDS: MUCOMYST 20% INH SCH ×3 (08:42→19:21)
--- NOTE | 2020-02-11 09:24 | PROGRESS NOTE ---
DATE: 02/11/2020 SUBJECTIVE: The patient is definitely much better. Upon my examination, she is more alert. She is still tachypneic, but definitely better in comparing with yesterday. Denies any chest pain or shortness of breath at rest. OBJECTIVE: Vitals: Temperature 99, heart rate 99, respiratory rate 39, blood pressure 176/81, and O2 saturation 98% on 6 L nasal cannula. General: This is a 54-year-old female lying in bed in no acute distress. Cardiovascular: S1, S2 heard. Tachycardic. No murmurs, gallops, or rubs noted. Respiratory: Coarse breath sounds. Rhonchi all over both pulmonary de paz. Basically, unchanged in comparing with yesterday. Patient not using any accessory muscles or having work of breathing. Abdomen: Soft and nontender to palpation. Bowel sounds present. No organomegaly. Extremities: No clubbing, cyanosis, or edema. Peripheral pulses present in all legs. Neurological: Patient is definitely more awake today. Able to have coherent conversation. Moves all 4 extremities spontaneously. LABORATORY DATA: White cell count 7.6, hemoglobin 10.7, hematocrit 34.0 and platelets 175,000. ABG shows pH 7.42 with pCO2 of 41, and PO2 139 on 6 L nasal cannula. BMP reveals home normal creatinine, glucose 144, and phosphorus 2.6. ASSESSMENT AND PLAN: 1. Acute hypoxemic respiratory failure secondary to aspiration pneumonia and chronic obstructive pulmonary disease exacerbation. At this point, this patient is stable on 6 L of oxygen by nasal cannula. At admission, she was requiring 2 L of oxygen. We have checked COVID-19, and the result is negative. The patient is still tachypneic but better in comparing with yesterday so at this point, I prefer to go ahead and keep her in the intensive care unit one more day. The CT angiogram of the chest showed questionable pulmonary emboli, bilateral posterior lower lobe versus artifact from motion and right lower lobe pneumonia. At this point, I prefer to go ahead and place her only on Lovenox prophylactically dosed at 40 units daily. I am planning to check an echocardiogram to see if there is any right sided strain. If that is the case, then we will start full doses of Lovenox. The patient is on vancomycin, Levaquin and meropenem. We will continue with the same management. 2. COPD exacerbation. We will continue with levalbuterol and Atrovent every 4 hours as scheduled. 3. Right lower lobe pneumonia. We will continue with antibiotics as above. 4. If the patient still has a fever. Also, we have repeated blood cultures and as of today there was no growth. 5. Diabetes mellitus type 2. We will continue with sliding scale insulin and Accu-Chek before meals and also at bedtime. 6. Hypothyroidism. We will continue with home medications. 7. Diabetic neuropathy. We will continue with Neurontin. 8. Disposition. The patient is definitely doing better. We are going to keep this patient in the ICU for one more day. If her oxygen needs are improving, then we will transfer her to a regular room tomorrow. cc: Mainor Barbosa MD
[2020-02-11] MEDS: PATIENT'S OWN MED PO SCH ×3 (11:09→20:03)
--- NOTE | 2020-02-11 16:12 | PROVIDER PROGRESS NOTE ---
Progress Note Dr. Boyd Progress Note/Pulmonary and or critical care Subjective: Patient is lying in bed on NC 6L with mild respiratory distress noted. Her respiratory rate is up to 30s. She appears lethargic at this time with difficulty to be aroused. She apparently had hallucination at an earlier time. Input was appreciated from Dr. Myers and other teams on the case. Objective: Vital Signs: Fever with T-max 101.2 in last 24 hours), MA 99, RR 28, BP 171/77 and SaO2 99% on NC 6L. Physical Examination: General: Lying in bed with no acute distress noted. HEENT: Atraumatic. Normocephalic. Trachea midline. Respiratory: Tachypnea. No increased work of breathing or accessory muscle use noted. Symmetrical excursion. Auscultation reveals expiratory wheezing on the right side of the lung. Cardiovascular: S1 and S2 appreciated. Gastrointestinal: Soft. Nondistended. Normoactive bowel sounds in all 4 quadrants. Extremities: No pedal edema. No clubbing or cyanosis noted. Neurologic: Lethargic with difficulty to be aroused. Labs and Radiology: Laboratory Results 02/10/20 02/10/20 02/10/20 15:26 16:00 16:00 WBC RBC Hgb Hct MCV MCH MCHC RDW Std Deviation Plt Count MPV Immature Gran % (Auto) Neut % (Auto) Lymph % (Auto) [place] % (Auto) Eos % (Auto) Baso % (Auto) Immature Gran # (Auto) Neut # (Auto) Lymph # (Auto) [place] # (Auto) Eos # (Auto) Baso # (Auto) Specimen Type Sample Site pH pCO2 pO2 HCO3 Base Excess Oxyhemoglobin ABG O2 Sat (Calculated) ABG O2 Saturation ABG Carboxyhemoglobin ABG Methemoglobin [place] Test A-a O2 Difference Total Hemoglobin Lactate Liter Flow Blood Gas Modality FiO2 % Sodium Potassium Chloride Carbon Dioxide Anion Gap BUN Creatinine Estimated GFR/1.73 m2 BUN/Creatinine Ratio Glucose POC Glucose 192 H Calculated Osmolality Calcium Phosphorus Troponin T High Sens 12 Albumin Random Vancomycin 8.80 02/10/20 02/11/20 02/11/20 20:57 05:00 05:00 WBC 7.60 RBC 3.60 L Hgb 10.7 L Hct 34.0 L MCV 94.4 MCH 29.7 MCHC 31.5 L RDW Std Deviation 13.3 Plt Count 175 MPV 9.2 Immature Gran % (Auto) 0.3 Neut % (Auto) 80.9 H Lymph % (Auto) 13.2 L [place] % (Auto) 5.4 Eos % (Auto) 0.1 Baso % (Auto) 0.1 Immature Gran # (Auto) 0.02 Neut # (Auto) 6.15 Lymph # (Auto) 1.00 L [place] # (Auto) 0.41 Eos # (Auto) 0.01 Baso # (Auto) 0.01 Specimen Type Sample Site pH pCO2 pO2 HCO3 Base Excess Oxyhemoglobin ABG O2 Sat (Calculated) ABG O2 Saturation ABG Carboxyhemoglobin ABG Methemoglobin [place] Test A-a O2 Difference Total Hemoglobin Lactate Liter Flow Blood Gas Modality FiO2 % Sodium 140 Potassium 3.7 Chloride 103 Carbon Dioxide 24 L Anion Gap 13 BUN 6 L Creatinine 0.5 Estimated GFR/1.73 m2 > 60 BUN/Creatinine Ratio 12 Glucose 144 H D POC Glucose 111 H Calculated Osmolality 280 Calcium 8.3 L Phosphorus 2.6 L Troponin T High Sens Albumin 2.6 L Random Vancomycin 02/11/20 02/11/20 02/11/20 05:06 06:07 10:45 WBC RBC Hgb Hct MCV MCH MCHC RDW Std Deviation Plt Count MPV Immature Gran % (Auto) Neut % (Auto) Lymph % (Auto) [place] % (Auto) Eos % (Auto) Baso % (Auto) Immature Gran # (Auto) Neut # (Auto) Lymph # (Auto) [place] # (Auto) Eos # (Auto) Baso # (Auto) Specimen Type ARTERIAL Sample Site R RADIAL pH 7.40 pCO2 41 pO2 139 H HCO3 25.3 Base Excess 0.5 Oxyhemoglobin 96.8 ABG O2 Sat (Calculated) 16.0 ABG O2 Saturation 98.6 ABG Carboxyhemoglobin 0.70 ABG Methemoglobin 1.1 [place]by Test YES A-a O2 Difference 123.0 Total Hemoglobin 11.6 Lactate 1.10 Liter Flow 6.0 Blood Gas Modality CAN[place]ULA FiO2 % 44.0 Sodium Potassium Chloride Carbon Dioxide Anion Gap BUN Creatinine Estimated GFR/1.73 m2 BUN/Creatinine Ratio Glucose POC Glucose 135 H 196 H Calculated Osmolality Calcium Phosphorus Troponin T High Sens Albumin Random Vancomycin Assessment: Acute hypoxemic respiratory failure secondary to pneumonia. COVID-19 negative. Pneumonia. Sputum culture pending. COVID-19 negative. Wheezing. Questionable pulmonary emboli. Sepsis with elevated lactate, tachycardia, tachypnea, and fever at presentation. Blood cultures on 02/07/20 have no growth after 48 hours. Urine culture on 02/08/20 has no growth. Schizoaffective disorder and Anxiety. Plan: Continue supplemental oxygen as needed. We titrated oxygen to patients needs per clinical protocols. We will monitor patients response closely and adjust accordingly. We follow up ABG. Continue antibiotics including Levaquin and Vancomycin. We will monitor patients clinical and lab response closely. Continue bronchodilators to promote pulmonary hygiene. Continue Mucomyst. Sputum culture pending. Continue Enoxaparin 40mg qd. We start IV Solu-Medrol 40 mg q6h. Limited echocardiogram performed this morning to rule out any right sided strain. We are ordering venous U/S bilateral legs at this time to rule out thromboembolism. Total evaluation time in minutes: 33.
[2020-02-11] MEDS: SOLU-MEDROL IV SCH ×2 (16:58→22:09)
[2020-02-11] MEDS: LOVENOX SUBQ SCH (16:58)
[2020-02-11] MEDS: FERROUS SULFATE PO SCH (20:04)
[2020-02-11] MEDS: MELATONIN PO SCH (20:07)
[2020-02-12] MEDS: LEVAQUIN 500 MG in NS 100 ML IV SCH (00:54)
[2020-02-12] MEDS: MERREM 1 GM in NS 50 ML IV SCH ×3 (01:57→21:32)
[2020-02-12] MEDS: NS IV SCH ×2 (03:08→08:59)
[2020-02-12] MEDS: LOPRESSOR IV SCH ×2 (03:08→08:59)
[2020-02-12] MEDS: ATROVENT NEB INH SCH ×6 (03:16→23:26)
[2020-02-12] MEDS: XOPENEX NEB INH SCH ×6 (03:16→23:26)
[2020-02-12 04:44] LABS: BASO# 0.08 X1000 (0.0-0.2); BASO% 1.5 % (0.0-0.8); EOS# 0.02 X1000 (0.0-0.7); EOS% 0.4 % (0.0-10.0); HEMATOCRIT 35.1 % (37.0-47.0); HEMOGLOBIN 11.3 g/dL (12.0-16.0); IMM GRAN# 0.11 X1000 (0.0-0.04); LYMPH# 0.68 X1000 (1.2-3.4); LYMPH% 12.4 % (20.5-51.1); MCHC 32.2 g/dL (33-37); MCV 93.1 FL (81-99); MONO# 0.12 X1000 (0.11-0.59); MONO% 2.2 % (1.7-9.3); NEUT# 4.47 X1000 (1.4-6.5); NEUT% 81.5 % (42.2-75.2); PLT 186 X1000 (130-400); RBC 3.77 XMIL (4.2-5.4); RDW 13.1 % (11.5-14.5); WBC 5.48 X1000 (4.8-10.8)
[2020-02-12] MEDS: SOLU-MEDROL IV SCH ×4 (04:47→21:33)
[2020-02-12] MEDS: VANCOMYCIN 1,600 MG in NS 250 ML IV SCH ×2 (04:47→17:57)
[2020-02-12 04:51] LABS: ALLEN TEST YES; BE -3.1 mmoll (-3.0-3.0); BLOOD TYPE ARTERIAL; HCO3-(ACT) 22.5 mmoll (20.0-26.0); METHB 1.1 % (0.0-1.5); O2(CT) 15.9 mL/dL (15.0-23.0); O2HB 95.9 % (95.0-99.0); PCO2(98.6) 34 mmHg (35-45); PO2(98.6) 87 mmHg (60-100); SAMPLE BLOOD; SAO2 97.7 % (95.0-100.0); THB 11.7 g/dL (11.5-17.4)
[2020-02-12 04:52] LABS: MODALITY CANNULA
[2020-02-12 05:00] LABS: AGAP 14; ALBUMIN 2.8 g/dL (3.5-5.0); BUN 10 mg/dL (8-22); CALCIUM 8.1 mg/dL (8.8-10.2); CHLORIDE 98 mmol/L (98-107); COSMO 276; CREATININE 0.5 mg/dL (0.5-0.9); ESTIMATED GFR > 60; GLUCOSE 261 mg/dL (70-104); POTASSIUM 3.9 mmol/L (3.5-5.1); SODIUM 134 mmol/L (136-145); TCO2 22 mmol/L (25-35)
--- NOTE | 2020-02-12 05:19 | ECHO REPORT ---
ORDER DATE: 02/11/2020 MEASUREMENTS: 1. Septal thickness 1.0. 2. Left ventricular internal diameter in diastole 3.1. 3. Aortic root 3.0. 4. Left atrium 3.3. SUMMARY: 1. Limited 2 dimensional echocardiography study performed. Acoustic windows are technically difficult. 2. Aortic valve appears without evidence of structural abnormality and appears to open adequately on 2-dimensional images. Mitral and tricuspid valves are without gross structural abnormality while pulmonic valve is not well demonstrated. The aortic root is normal in size. 3. Normal left ventricular dimensions suggested. The left ventricle appears hyperdynamic with estimated left ventricular ejection fraction at least 75%. No obvious wall motion abnormality can be appreciated. Left atrium, right atrium, and right ventricle are grossly normal in size with grossly preserved right ventricular systolic function. 4. No pericardial effusion. 5. Inferior vena cava not well demonstrated. CONCLUSIONS: 1. Limited 2 dimensional study with difficult acoustic windows. 2. No obvious valvular structural abnormality. 3. Hyperdynamic left ventricle without obvious wall motion abnormality. cc: MD Mainor Santoyo MD
[2020-02-12] MEDS: LINZESS PO SCH (06:00)
[2020-02-12] MEDS: SYNTHROID PO SCH (06:00)
[2020-02-12] MEDS: HUMALOG SUBQ SCH ×4 (06:01→21:34)
--- NOTE | 2020-02-12 07:08 | Extremity Venous Study ---
PROCEDURE NAME: Venous U/S Bilateral Legs - 02/11/2020 REQUESTING PHYSICIAN: Dr. Boyd. OFFICE MACHINE SERVICE SUPERVISOR: Burton. INDICATIONS: Shortness of breath. EQUIPMENT: [employer] Vivid E9 ultrasound system with a 9 L-D transducer. FINDINGS: Images of the bilateral lower extremity venous systems were obtained in both sagittal and transverse planes. Doppler was used to evaluate the veins for spontaneity, phasicity, respiratory excursion, and digital augmentation. No obvious superficial or deep venous thrombosis noted. INTERPRETATION: Essentially normal bilateral lower extremity venous study. cc: MD Efrain Gaines MD
[2020-02-12] MEDS: GLUCOPHAGE PO SCH ×2 (07:23→16:37)
[2020-02-12] MEDS: ATROVENT NEB INH PRN (07:30)
[2020-02-12] MEDS: MUCOMYST 20% INH SCH ×2 (07:30→19:46)
[2020-02-12] MEDS: XOPENEX NEB INH PRN (07:30)
[2020-02-12] MEDS: MUCINEX PO SCH ×2 (08:24→21:32)
[2020-02-12] MEDS: NEURONTIN PO SCH ×2 (08:24→21:32)
[2020-02-12] MEDS: TOPROL XL PO SCH (08:24)
[2020-02-12] MEDS: VITAMIN B-12 PO SCH (08:24)
[2020-02-12] MEDS: LAMICTAL PO SCH ×2 (08:25→21:33)
[2020-02-12] MEDS: ASPIRIN EC PO SCH (08:25)
[2020-02-12] MEDS: DULCOLAX PR SCH (08:25)
--- NOTE | 2020-02-12 09:39 | PROGRESS NOTE ---
DATE: 02/12/2020 SUBJECTIVE: The patient definitely is much better in comparing with yesterday. We were able to wean off oxygen to 2 L/minute by nasal cannula. She is definitely not tachypneic anymore, not spiking any fever. OBJECTIVE: Vital Signs: Temperature 97.8 degrees, heart rate 101, respiratory rate 24, blood pressure 140/78, O2 saturation 95% on 2 L nasal cannula. General: This is a chronically ill looking, 54-year-old female, lying in bed, in no acute distress. Cardiovascular: S1, S2 heard. Tachycardic. No murmurs, gallops, or rubs noted. Respiratory: Coarse breath sounds and rhonchi noted all over both pulmonary de paz but definitely better in comparing with yesterday. Patient is not using any accessory muscles or having work of breathing. Abdomen: Soft, nontender to palpation. Bowel sounds present. No organomegaly. Extremities: No clubbing, cyanosis, or edema. Peripheral pulses present in both legs. Neurological: Patient is alert and oriented x3. Moves 4 extremities. LABORATORY DATA: White cell count 5.48, hemoglobin 11.3, hematocrit 35.1, platelets 196,000. ABG that shows pH 7.4, with pCO2 of 34 PO2 of 87, that was taken on 2 L of oxygen by nasal cannula. BMP reveals sodium 134, normal creatinine, glucose 261. ASSESSMENT AND PLAN: 1. Acute respiratory failure secondary to aspiration pneumonia and chronic obstructive pulmonary disease exacerbation. Clinically, this patient continues to improve. Yesterday, she was requiring 6 L of oxygen by nasal cannula and today, she is requiring 2. She is not tachypneic anymore and she is breathing much better according to her. When she was short of breath and tachypneic, we did a CT angiogram of the chest which basically showed question of pulmonary emboli. Considering that her clinical situation is getting better, I do not think she truly has a pulmonary embolism. In that regard, we will continue with Lovenox prophylactically, dose it at 40 units daily. The echocardiogram did not show any right heart strain, so we will continue with the same management. Currently, this patient is on vancomycin, Levaquin and meropenem. We will continue with same. 2. Chronic obstructive pulmonary disease exacerbation. As mentioned before, we will continue with levalbuterol and Atrovent every 4 hours scheduled. 3. Right lower lobe pneumonia. We will continue with antibiotics as above. Clinically, this patient is doing fine requiring less oxygen supplementation. 4. Diabetes mellitus type 2. We will continue with sliding scale insulin and Accu-Chek before meals and also at bedtime. 5. Hypothyroidism. We will continue with home doses of levothyroxine. 6. Diabetic neuropathy. We will continue with Neurontin. 7. Disposition. I think this patient is improving a lot, so we will transfer her to a normal room today. cc: Mainor Barbosa MD MTDD
[2020-02-12] MEDS: LOVENOX SUBQ SCH (14:23)
[2020-02-12] MEDS: PATIENT'S OWN MED PO SCH ×2 (14:27→17:50)
[2020-02-12] MEDS: NS 1,000 ML IV SCH (14:59)
[2020-02-12] MEDS: TYLENOL PO PRN (15:18)
--- NOTE | 2020-02-12 17:54 | PROVIDER PROGRESS NOTE ---
Progress Note Dr. Boyd Progress Note/Pulmonary and or critical care Subjective: Patient is lying in bed on NC 2L with no acute distressnoted. She is awake and alert. She still has some cough, but with less production. She is asking for breathing treatment at this time. Objective: Vital Signs: T 97.8 (no fever in last 24 hours), [place] 101, RR 24, BP 140/82 and SaO2 95% on NC 2L. Physical Examination: General: Lying in bed with no acute distress noted. HEENT: Atraumatic. Normocephalic. Trachea midline. Respiratory: Even and unlabored. No increased work of breathing or accessory muscle use noted. Symmetrical excursion. Auscultation reveals mild expiratory wheezing bilaterally. Cardiovascular: S1 and S2 appreciated. Gastrointestinal: Soft. Nondistended. Normoactive bowel sounds in all 4 quadrants. Extremities: No pedal edema. No clubbing or cyanosis noted. Neurologic: Awake and alert. Answer simple questions. Follow simple commands. Labs and Radiology: Laboratory Results 02/07/20 02/11/20 02/12/20 23:15 20:02 04:25 WBC RBC Hgb Hct MCV MCH MCHC RDW Std Deviation Plt Count MPV Immature Gran % (Auto) Neut % (Auto) Lymph % (Auto) [place] % (Auto) Eos % (Auto) Baso % (Auto) Immature Gran # (Auto) Neut # (Auto) Lymph # (Auto) [place] # (Auto) Eos # (Auto) Baso # (Auto) Specimen Type ARTERIAL ARTERIAL Sample Site L RADIAL R RADIAL pH 7.38 7.40 pCO2 45 34 L pO2 51 L 87 HCO3 25.4 22.5 Base Excess 1.0 -3.1 L Oxyhemoglobin 85.9 L* 95.9 ABG O2 Sat (Calculated) 15.7 15.9 ABG O2 Saturation 88.6 L 97.7 ABG Carboxyhemoglobin 2.20 0.70 ABG Methemoglobin 0.8 1.1 [place] Test YES YES A-a O2 Difference 606.0 70.0 Total Hemoglobin 13.0 11.7 Lactate 4.00 H* 1.10 Liter Flow 15.0 2.0 Blood Gas Modality NRB CANNULA FiO2 % 100.0 28.0 Sodium Potassium Chloride Carbon Dioxide Anion Gap BUN Creatinine Estimated GFR/1.73 m2 BUN/Creatinine Ratio Glucose POC Glucose 211 H D Calculated Osmolality Calcium Phosphorus Albumin Random Vancomycin 02/12/20 02/12/20 02/12/20 04:28 04:28 05:36 WBC 5.48 RBC 3.77 L Hgb 11.3 L Hct 35.1 L MCV 93.1 MCH 30.0 MCHC 32.2 L RDW Std Deviation 13.1 Plt Count 186 MPV 9.0 Immature Gran % (Auto) 2.0 H Neut % (Auto) 81.5 H Lymph % (Auto) 12.4 L [place] % (Auto) 2.2 Eos % (Auto) 0.4 Baso % (Auto) 1.5 H Immature Gran # (Auto) 0.11 H Neut # (Auto) 4.47 Lymph # (Auto) 0.68 L [place] # (Auto) 0.12 Eos # (Auto) 0.02 Baso # (Auto) 0.08 Specimen Type Sample Site pH pCO2 pO2 HCO3 Base Excess Oxyhemoglobin ABG O2 Sat (Calculated) ABG O2 Saturation ABG Carboxyhemoglobin ABG Methemoglobin [place]by Test A-a O2 Difference Total Hemoglobin Lactate Liter Flow Blood Gas Modality FiO2 % Sodium 134 L Potassium 3.9 Chloride 98 Carbon Dioxide 22 L Anion Gap 14 BUN 10 D Creatinine 0.5 Estimated GFR/1.73 m2 > 60 BUN/Creatinine Ratio 20 Glucose 261 H D POC Glucose 260 H Calculated Osmolality 276 Calcium 8.1 L Phosphorus 3.0 Albumin 2.8 L Random Vancomycin 02/12/20 02/12/20 02/12/20 10:23 16:01 16:15 WBC RBC Hgb Hct MCV MCH MCHC RDW Std Deviation Plt Count MPV Immature Gran % (Auto) Neut % (Auto) Lymph % (Auto) [place] % (Auto) Eos % (Auto) Baso % (Auto) Immature Gran # (Auto) Neut # (Auto) Lymph # (Auto) [place] # (Auto) Eos # (Auto) Baso # (Auto) Specimen Type Sample Site pH pCO2 pO2 HCO3 Base Excess Oxyhemoglobin ABG O2 Sat (Calculated) ABG O2 Saturation ABG Carboxyhemoglobin ABG Methemoglobin [place]by Test A-a O2 Difference Total Hemoglobin Lactate Liter Flow Blood Gas Modality FiO2 % Sodium Potassium Chloride Carbon Dioxide Anion Gap BUN Creatinine Estimated GFR/1.73 m2 BUN/Creatinine Ratio Glucose POC Glucose 243 H 367 H D Calculated Osmolality Calcium Phosphorus Albumin Random Vancomycin 14.70 Assessment: Acute hypoxemic respiratory failure secondary to pneumonia and possible asthma exacerbation. COVID-19 negative. Improving. Pneumonia. COVID-19 negative. CTPA on 02/10/20 revealed questionable pulmonary emboli at bilateral posterior lower lobes vs. artifacts from motion, RLL pneumonia and bilateral dependent atelectasis. Possible asthma exacerbation. Patient reports she has a history of asthma, but can't provide any detail. Questionable pulmonary emboli vs. artifacts from motion. Venous US Bilateral legs are negative. Sepsis with elevated lactate, tachycardia, tachypnea, and fever at presentation. Blood cultures on 02/07/20 have no growth after 48 hours. Urine culture on 02/07 has no growth. Schizoaffective disorder and Anxiety. Plan: Continue supplemental oxygen as needed. We titrated oxygen to patients needs per clinical protocols. We will monitor patients response closely and adjust accordingly. We follow up ABG. Continue antibiotics including Levaquin and Vancomycin. We will monitor patients clinical and lab response closely. Continue bronchodilators to promote pulmonary hygiene. Continue Mucomyst. If indicated, we will discontinue it tomorrow. Continue Enoxaparin 40mg qd. Continue IV Solu-Medrol 40 mg q6h. No weaning at this time.
[2020-02-12] MEDS: FERROUS SULFATE PO SCH (21:33)
[2020-02-12] MEDS: MELATONIN PO SCH (21:33)
[2020-02-13] MEDS: LEVAQUIN 500 MG in NS 100 ML IV SCH (00:25)
[2020-02-13] MEDS: NS 1,000 ML IV SCH ×2 (02:35→20:37)
[2020-02-13] MEDS: SOLU-MEDROL IV SCH ×3 (04:28→17:51)
[2020-02-13] MEDS: MERREM 1 GM in NS 50 ML IV SCH ×3 (04:28→20:31)
[2020-02-13] MEDS: VANCOMYCIN 1,600 MG in NS 250 ML IV SCH ×2 (05:19→17:56)
[2020-02-13] MEDS: LINZESS PO SCH (06:25)
[2020-02-13] MEDS: SYNTHROID PO SCH (06:25)
[2020-02-13] MEDS: HUMALOG SUBQ SCH ×4 (06:26→20:36)
--- NOTE | 2020-02-13 06:44 | Diag Imaging Result Doc PS360 ---
EXAM: CHEST-1 VIEW 02/13/2020 HISTORY: SOB TECHNIQUE: AP portable at 0616 COMMENT: The appearance the chest has not changed appreciably since 02/09/2020. IMPRESSION: Stable chest. Electronically signed by Armen Barajas 02/13/2020 6:42 AM
[2020-02-13] MEDS: ASPIRIN EC PO SCH (08:23)
[2020-02-13] MEDS: GLUCOPHAGE PO SCH ×2 (08:23→16:17)
[2020-02-13] MEDS: VITAMIN B-12 PO SCH (08:23)
[2020-02-13] MEDS: MUCINEX PO SCH ×2 (08:23→20:31)
[2020-02-13] MEDS: LAMICTAL PO SCH ×2 (08:24→20:32)
[2020-02-13] MEDS: ATROVENT NEB INH SCH ×5 (08:38→23:35)
[2020-02-13] MEDS: DULCOLAX PR SCH (08:38)
[2020-02-13] MEDS: XOPENEX NEB INH SCH ×5 (08:38→23:35)
[2020-02-13] MEDS: MUCOMYST 20% INH SCH ×2 (08:39→19:45)
[2020-02-13] MEDS: NEURONTIN PO SCH ×2 (09:30→20:35)
[2020-02-13] MEDS: TOPROL XL PO SCH (09:31)
--- NOTE | 2020-02-13 11:42 | PROGRESS NOTE ---
DATE: 02/13/2020 SUBJECTIVE: The patient reports breathing better. She is requiring oxygen 2 L by nasal cannula. No other issues noted. As per nursing staff, the patient continues to have hallucinations. That happened since she was admitted on here in the hospital. OBJECTIVE: Vital Signs: Temperature 97.8 degrees, heart rate 106, respiratory rate 19, blood pressure 175/70, O2 saturation 93% on 2 L nasal cannula. General: This is a chronically ill- looking, 54-year-old, female, lying in bed in no acute distress. Cardiovascular: S1, S2 heard. No murmurs, gallops, or rubs. Regular rate and rhythm. Respiratory: Coarse breath sounds noted in both pulmonary de paz, definitely much better in comparing with previous days. The patient is not using any accessory muscles or having work of breathing. Abdomen: Soft. Nontender to palpation. Bowel sounds present. No organomegaly. Extremities: No clubbing, cyanosis, or edema. Peripheral pulses present in both legs. Neurological: The patient is alert and oriented x3. Moves all 4 extremities. LABORATORY DATA: Reviewed. ASSESSMENT AND PLAN: 1. Acute respiratory failure secondary to aspiration pneumonia and chronic obstructive pulmonary disease exacerbation. Clinically, the patient is doing fine. She is requiring only 2 liters of oxygen by nasal cannula. Will continue to monitor. 2. Chronic obstructive pulmonary disease exacerbation. Will continue with levalbuterol and Atrovent every 4 hours as scheduled. 3. Right lower lobe pneumonia. Will continue with antibiotics as above. 4. Diabetes mellitus type 2. Continue sliding scale insulin and Accu-Chek before meals and also at bedtime. 5. Hypothyroidism. Will continue home doses of levothyroxine. 6. Diabetic neuropathy. Will continue with Neurontin. 7. History of schizophrenia. The patient continues to have active visual hallucinations most of the time since she is admitted here. We have put a consult for social welfare clerk, and see if this patient can be discharged home or if she needs to go back to [facility]. cc: Mainor Barbosa MD
[2020-02-13] MEDS: PATIENT'S OWN MED PO SCH ×2 (12:54→20:22)
[2020-02-13 13:59] LABS: BASO# 0.12 X1000 (0.0-0.2); BASO% 1.2 % (0.0-0.8); HEMATOCRIT 36.6 % (37.0-47.0); HEMOGLOBIN 11.7 g/dL (12.0-16.0); IMM GRAN# 0.34 X1000 (0.0-0.04); IMM GRAN% 3.5 % (0.0-0.5); LYMPH# 1.08 X1000 (1.2-3.4); MCH 29.3 PG (27-31); MCV 91.7 FL (81-99); MONO# 0.21 X1000 (0.11-0.59); MONO% 2.1 % (1.7-9.3); MPV 9.1 FL (7.4-10.4); NEUT# 8.04 X1000 (1.4-6.5); NEUT% 82.2 % (42.2-75.2); PLT 232 X1000 (130-400); RBC 3.99 XMIL (4.2-5.4); RDW 13.1 % (11.5-14.5); WBC 9.79 X1000 (4.8-10.8)
[2020-02-13 14:40] LABS: BANDS 6 % (0-1); LYMPHS 8 % (21-51); SEGS 81 % (42-75)
[2020-02-13 14:50] LABS: AGAP 14; BUN 14 mg/dL (8-22); CALCIUM 8.5 mg/dL (8.8-10.2); CHLORIDE 101 mmol/L (98-107); COSMO 289; CREATININE 0.6 mg/dL (0.5-0.9); ESTIMATED GFR > 60; GLUCOSE 356 mg/dL (70-104); PHOSPHORUS 1.8 mg/dL (2.7-4.5); SODIUM 137 mmol/L (136-145); TCO2 22 mmol/L (25-35)
[2020-02-13 14:51] LABS: POTASSIUM 3.3 mmol/L (3.5-5.1)
[2020-02-13] MEDS: LOVENOX SUBQ SCH (16:17)
--- NOTE | 2020-02-13 18:39 | PROVIDER PROGRESS NOTE ---
Progress Note Dr. Boyd Progress Note/Pulmonary and or critical care Subjective: Patient is lying in bed room air with SaO2 93-94%. She is awake and alert. She has improving cough and SOB.She apparently refused blood drops this morning. Staff at the bedside is working on it. Objective: Vital Signs: T 97.5 (no fever in last 24 hours), [place] 106, RR 19, BP 175/78 and SaO2 93% on NC 2L. Physical Examination: General: Lying in bed with no acute distress noted. HEENT: Atraumatic. Normocephalic. Trachea midline. Respiratory: Rapid and shallow. No increased work of breathing or accessory muscle use noted. Symmetrical excursion. Auscultation reveals decreased air ent ry bilaterally. Cardiovascular: Sinus tachycardia. S1 and S2 appreciated. Gastrointestinal: Soft. Nondistended. Normoactive bowel sounds in all 4 quadrants. Extremities: No pedal edema. No clubbing or cyanosis noted. Neurologic: Awake and alert. Answer simple questions. Follow simple commands. Labs and Radiology: Laboratory Results 02/12/20 02/13/20 02/13/20 20:09 05:53 10:58 WBC RBC Hgb Hct MCV MCH MCHC RDW Std Deviation Plt Count MPV Immature Gran % (Auto) Neut % (Auto) Lymph % (Auto) [place] % (Auto) Eos % (Auto) Baso % (Auto) Immature Gran # (Auto) Neut # (Auto) Lymph # (Auto) [place] # (Auto) Eos # (Auto) Baso # (Auto) Segmented Neutrophils Band Neutrophils Lymphocytes Metamyelocytes Myelocytes Atypical Lymphocytes Sodium Potassium Chloride Carbon Dioxide Anion Gap BUN Creatinine Estimated GFR/1.73 m2 BUN/Creatinine Ratio Glucose POC Glucose 284 H 290 H 313 H Calculated Osmolality Calcium Phosphorus Albumin 02/13/20 02/13/20 02/13/20 13:31 13:31 16:06 WBC 9.79 RBC 3.99 L Hgb 11.7 L Hct 36.6 L MCV 91.7 MCH 29.3 MCHC 32.0 L RDW Std Deviation 13.1 Plt Count 232 MPV 9.1 Immature Gran % (Auto) 3.5 H Neut % (Auto) 82.2 H Lymph % (Auto) 11.0 L [place] % (Auto) 2.1 Eos % (Auto) 0.0 Baso % (Auto) 1.2 H Immature Gran # (Auto) 0.34 H Neut # (Auto) 8.04 H Lymph # (Auto) 1.08 L [place] # (Auto) 0.21 Eos # (Auto) 0.00 Baso # (Auto) 0.12 Segmented Neutrophils 81 H Band Neutrophils 6 H Lymphocytes 8 L Metamyelocytes 2.0 Myelocytes 1.0 Atypical Lymphocytes 2.0 Sodium 137 Potassium 3.3 L D Chloride 101 Carbon Dioxide 22 L Anion Gap 14 BUN 14 Creatinine 0.6 Estimated GFR/1.73 m2 > 60 BUN/Creatinine Ratio 23 Glucose 356 H POC Glucose 305 H Calculated Osmolality 289 Calcium 8.5 L Phosphorus 1.8 L Albumin 3.0 L Assessment: Acute hypoxemic respiratory failure secondary to pneumonia and possible asthma exacerbation. COVID-19 negative. Improving. Pneumonia. COVID-19 negative. CTPA on 02/10/20 revealed questionable pulmonary emboli at bilateral posterior lower lobes vs. artifacts from motion, RLL pneumonia and bilateral dependent atelectasis.CXR today shows stable chest with negative exam. Asthma or COPD exacerbation. Patient reports she has a history of asthma and bronchitis, but can't provide any detail. Questionable pulmonary emboli vs. artifacts from motion. Venous US Bilateral legs are negative.Repeat venous US bilateral leg today. Sepsis with elevated lactate, tachycardia, tachypnea, and fever at presentation. Improved. Blood cultures on 02/07/20 have no growth after 48 hours. Urine culture on 02/08/20 has no growth. Schizoaffective disorder and Anxiety. Plan: Continue supplemental oxygen as needed. We titrated oxygen to patients needs per clinical protocols. We will monitor patients response closely and adjust accordingly. Continue antibiotics including Levaquin and Vancomycin. We will monitor patients clinical and lab response closely. Continue bronchodilators to promote pulmonary hygiene. Continue Mucomyst. If indicated, we will discontinue it tomorrow. Continue Enoxaparin 40mg qd. We are weaning IV Solu-Medrol down to 40 mg q8h. Repeat venous US bilateral legs today.
[2020-02-13] MEDS: MELATONIN PO SCH (20:32)
--- NOTE | 2020-02-13 20:32 | Extremity Venous Study ---
PROCEDURE NAME: Venous U/S Bilateral Legs - 02/13/2020 REFERRING PHYSICIAN: Oliver. READING PHYSICIAN: Amberly. SUPERVISOR TREE TRIMMING: Terese. INDICATION: Leg swelling. FINDINGS: The deep and superficial veins of both lower extremities were imaged throughout their course. They are compressible, patent, and without thrombus. INTERPRETATION: No DVT or SVT in either lower extremity. cc: MD Efrain Armijo MD
[2020-02-13] MEDS: FERROUS SULFATE PO SCH (20:35)
[2020-02-14] MEDS: LEVAQUIN 500 MG in NS 100 ML IV SCH (01:42)
[2020-02-14] MEDS: SOLU-MEDROL IV SCH (01:42)
[2020-02-14 04:35] LABS: BASO# 0.16 X1000 (0.0-0.2); BASO% 1.7 % (0.0-0.8); HEMATOCRIT 36.3 % (37.0-47.0); HEMOGLOBIN 11.9 g/dL (12.0-16.0); IMM GRAN% 8.4 % (0.0-0.5); LYMPH% 13.7 % (20.5-51.1); MCH 30.1 PG (27-31); MCHC 32.8 g/dL (33-37); MCV 91.9 FL (81-99); MONO# 0.58 X1000 (0.11-0.59); MONO% 6.1 % (1.7-9.3); NEUT# 6.64 X1000 (1.4-6.5); NEUT% 70.1 % (42.2-75.2); PLT 214 X1000 (130-400); RBC 3.95 XMIL (4.2-5.4); RDW 13.2 % (11.5-14.5); WBC 9.48 X1000 (4.8-10.8)
[2020-02-14 05:08] LABS: AGAP 15; ALBUMIN 3.1 g/dL (3.5-5.0); BUN 11 mg/dL (8-22); CALCIUM 8.6 mg/dL (8.8-10.2); CHLORIDE 106 mmol/L (98-107); COSMO 285; CREATININE 0.6 mg/dL (0.5-0.9); ESTIMATED GFR > 60; GLUCOSE 145 mg/dL (70-104); PHOSPHORUS 2.2 mg/dL (2.7-4.5); POTASSIUM 3.6 mmol/L (3.5-5.1); SODIUM 142 mmol/L (136-145); TCO2 21 mmol/L (25-35)
[2020-02-14] MEDS: HUMALOG SUBQ SCH ×4 (06:38→22:56)
[2020-02-14] MEDS: SYNTHROID PO SCH (06:38)
[2020-02-14] MEDS: LINZESS PO SCH (06:40)
[2020-02-14] MEDS: MERREM 1 GM in NS 50 ML IV SCH ×3 (07:43→22:56)
[2020-02-14 08:01] LABS: INR 0.93; PROTIME 12.6 Seconds (11.0-16.0)
[2020-02-14] MEDS: ATROVENT NEB INH SCH ×5 (08:04→23:00)
[2020-02-14] MEDS: XOPENEX NEB INH SCH ×5 (08:05→23:00)
[2020-02-14] MEDS: MUCOMYST 20% INH SCH (08:05)
[2020-02-14] MEDS: VITAMIN B-12 PO SCH (08:18)
[2020-02-14] MEDS: MUCINEX PO SCH ×2 (08:18→20:56)
[2020-02-14] MEDS: ASPIRIN EC PO SCH (08:19)
[2020-02-14] MEDS: NEURONTIN PO SCH ×2 (08:19→20:56)
[2020-02-14] MEDS: LAMICTAL PO SCH ×2 (08:19→20:57)
[2020-02-14] MEDS: GLUCOPHAGE PO SCH ×2 (08:19→19:06)
[2020-02-14] MEDS: TOPROL XL PO SCH (08:19)
[2020-02-14] MEDS: DULCOLAX PR SCH (08:19)
[2020-02-14] MEDS: TYLENOL PO PRN (08:26)
--- NOTE | 2020-02-14 10:02 | DISCHARGE SUMMARY ---
ADMISSION DATE: 02/08/2020 DISCHARGE DATE: HISTORY: Ms. Hodge is a 54-year-old who was admitted on 02/08/2020. She has no primary care physician. She presented from [facility] complaining of shortness of breath, and was there since yesterday morning. She was saturating at 74% on room air at 15 L, and got up to 90%. She was using accessory muscles, weaned her off her room air. She saturated 81%. She presented with altered mental status to [place], and not able to give much information pulling out her lines, and had to be put in 4 point restraints. She was found to have right lower lobe pneumonia suspected for COVID-19, and was tested. She was placed on BiPAP and special filter, initiated vancomycin and Levaquin due to her multiple allergies. It was well tolerated, and was treated for COPD exacerbation. Past medical history hard to obtain at the time of admission. She is positive for diabetes mellitus type 2, anemia, hypothyroidism, and diabetic neuropathy. She was admitted with acute hypoxemic respiratory failure secondary to COPD exacerbation. They did test for COVID-19 and this was negative. She is breathing better. She had a right lower lobe pneumonia and was treated with antibiotics. Concerned about early sepsis with positive lactate. Clinically, she has improved, and she is requesting to go home. She remains afebrile. Temperature 98.1 degrees, pulse 100, respirations 18, and blood pressure 148/76. Pupils are equal and round. Lungs are clear in all lung de paz. Cardiovascular regular rhythm and rate without murmur or S3. Abdomen is soft. Skin is warm and dry. HOSPITAL COURSE: Chest x-ray was negative exam. Pulmonary was consulted, and felt she had acute hypoxemic respiratory failure secondary to possible pneumonia or bronchitis. She was tested for coronavirus COVID-19, and it was negative. Possible pneumonia or bronchitis was treated. The sugars were followed and put on pattern sugars. She had a pulmonary arteriogram on 02/09, questionable pulmonary emboli and bilateral posterior lower lobe versus artifact from motion. Echocardiogram done on 02/10, limited 2 dimensional echocardiogram performed. Acoustic windows difficult. Aortic valve appears without evidence of structural abnormality. Mitral and tricuspid valves without gross structural abnormality. Normal left ventricular dimensions. Ejection fraction at least 75%. No obvious wall motion abnormalities. No pericardial effusion. She had lower extremity venous study done bilateral, essentially normal bilateral lower venous study. Then, she had some left leg swelling and repeated the left side. No DVT or superficial venous thrombosis in either extremity. Chest x-ray repeated on 02/12 with stable chest. Clinically, she felt better. I believe she had acute hypoxemic respiratory failure secondary to pneumonia and possible asthma exacerbation. COVID-[address] was negative. Improving pneumonia. CT PA on 02/10/2020 revealed questionable pulmonary emboli and bilateral posterior lobes versus artifact motion, right lower lobe pneumonia, and bilateral dependent atelectasis. Chest x-ray showed stable exam with no infiltrates. She had bilateral lower venous studies that showed no DVT. The patient had history of asthma and bronchitis, but can't provide any detail. Questionable pulmonary emboli versus artifact from motion. Ultrasound of bilateral lower extremities were done, and they were negative. She is off of her oxygen, and she would like to go home. I will continue Levaquin for another 7 days. DISCHARGE MEDICATIONS: 1. She will go on aspirin 81 mg a day. 2. She gets Dulcolax suppository per rectum daily if she needs it for constipation. 3. Ferrous sulfate 325 mg at bedtime. 4. Neurontin 800 mg p.o. b.i.d. 5. Mucinex 1200 mg p.o. twice a day. 6. Lamictal 100 mg p.o. at bedtime, and 100 mg every morning. 7. Synthroid 50 mcg p.o. daily. 8. Linzess 145 mcg p.o. daily. She will need to follow up with primary care. cc: Colby Willams MD
--- NOTE | 2020-02-14 13:26 | PROVIDER PROGRESS NOTE ---
Progress Note Dr. Boyd Progress Note/Pulmonary and or critical care Subjective: Patient is lying in bed on room air. She is calm and cooperative. She states she is waiting to go home. She still has some dry cough with deep breathing. Objective: Vital Signs: T 98.1 (no fever in last 24 hours), FL 101, RR 18, BP 148/76 and SaO2 93% on room air. Physical Examination: General: Lying in bed with no acute distress noted. HEENT: Atraumatic. Normocephalic. Trachea midline. Respiratory: Even and unlabored. No increased work of breathing or accessory muscle use noted. Symmetrical excursion. Clear to auscultation with improving air entry bilaterally. Cardiovascular: Mild tachycardia. S1 and S2 appreciated. Gastrointestinal: Soft. Nondistended. Normoactive bowel sounds in all 4 quadrants. Extremities: No pedal edema. No clubbing or cyanosis noted. Neurologic: Awake and alert. Answer simple questions. Follow simple commands. Labs and Radiology: Laboratory Results 02/13/20 02/13/20 02/13/20 13:31 13:31 16:06 WBC 9.79 RBC 3.99 L Hgb 11.7 L Hct 36.6 L MCV 91.7 MCH 29.3 MCHC 32.0 L RDW Std Deviation 13.1 Plt Count 232 MPV 9.1 Immature Gran % (Auto) 3.5 H Neut % (Auto) 82.2 H Lymph % (Auto) 11.0 L Benson % (Auto) 2.1 Eos % (Auto) 0.0 Baso % (Auto) 1.2 H Immature Gran # (Auto) 0.34 H Neut # (Auto) 8.04 H Lymph # (Auto) 1.08 L Benson # (Auto) 0.21 Eos # (Auto) 0.00 Baso # (Auto) 0.12 Segmented Neutrophils 81 H Band Neutrophils 6 H Lymphocytes 8 L Metamyelocytes 2.0 Myelocytes 1.0 Atypical Lymphocytes 2.0 PT INR Sodium 137 Potassium 3.3 L D Chloride 101 Carbon Dioxide 22 L Anion Gap 14 BUN 14 Creatinine 0.6 Estimated GFR/1.73 m2 > 60 BUN/Creatinine Ratio 23 Glucose 356 H POC Glucose 305 H Calculated Osmolality 289 Calcium 8.5 L Phosphorus 1.8 L Albumin 3.0 L Random Vancomycin 02/13/20 02/14/20 02/14/20 19:40 04:19 04:19 WBC 9.48 RBC 3.95 L Hgb 11.9 L Hct 36.3 L MCV 91.9 MCH 30.1 MCHC 32.8 L RDW Std Deviation 13.2 Plt Count 214 MPV 9.0 Immature Gran % (Auto) 8.4 H Neut % (Auto) 70.1 Lymph % (Auto) 13.7 L Benson % (Auto) 6.1 Eos % (Auto) 0.0 Baso % (Auto) 1.7 H Immature Gran # (Auto) 0.80 H Neut # (Auto) 6.64 H Lymph # (Auto) 1.30 Benson # (Auto) 0.58 Eos # (Auto) 0.00 Baso # (Auto) 0.16 Segmented Neutrophils Band Neutrophils Lymphocytes Metamyelocytes Myelocytes Atypical Lymphocytes PT INR Sodium 142 Potassium 3.6 Chloride 106 Carbon Dioxide 21 L Anion Gap 15 BUN 11 Creatinine 0.6 Estimated GFR/1.73 m2 > 60 BUN/Creatinine Ratio 18 Glucose 145 H D POC Glucose 388 H Calculated Osmolality 285 Calcium 8.6 L Phosphorus 2.2 L Albumin 3.1 L Random Vancomycin 02/14/20 02/14/20 02/14/20 04:19 07:16 10:44 WBC RBC Hgb Hct MCV MCH MCHC RDW Std Deviation Plt Count MPV Immature Gran % (Auto) Neut % (Auto) Lymph % (Auto) Benson % (Auto) Eos % (Auto) Baso % (Auto) Immature Gran # (Auto) Neut # (Auto) Lymph # (Auto) Benson # (Auto) Eos # (Auto) Baso # (Auto) Segmented Neutrophils Band Neutrophils Lymphocytes Metamyelocytes Myelocytes Atypical Lymphocytes PT 12.6 INR 0.93 Sodium Potassium Chloride Carbon Dioxide Anion Gap BUN Creatinine Estimated GFR/1.73 m2 BUN/Creatinine Ratio Glucose POC Glucose 125 H D Calculated Osmolality Calcium Phosphorus Albumin Random Vancomycin 20.10 Assessment: Acute hypoxemic respiratory failure secondary to pneumonia and possible asthma exacerbation. COVID-19 negative. Improving. Pneumonia. COVID-19 negative. CTPA on 02/10/20 revealed questionable pulmonary emboli at bilateral posterior lower lobes vs. artifacts from motion, RLL pneumonia and bilateral dependent atelectasis. Asthma or COPD exacerbation. Patient reports she has a history of asthma and bronchitis, but can't provide any detail. Questionable pulmonary emboli vs. artifacts from motion. Venous US Bilateral legs are negative.Repeat venous US bilateral leg today. Sepsis with elevated lactate, tachycardia, tachypnea, and fever at presentation. Improved. Blood cultures on 02/07/20 have no growth after 48 hours. Urine culture on 02/08/20 has no growth. Schizoaffective disorder and Anxiety. Plan: Continue supplemental oxygen as needed. We titrated oxygen to patients needs per clinical protocols. We will monitor patients response closely and adjust accordingly. Continue antibiotics including Levaquin and Vancomycin. We will monitor patients clinical and lab response closely. Continue bronchodilators to promote pulmonary hygiene. We discontinue Mucomyst. Continue Enoxaparin 40mg qd. Switch IV Solu-Medrol to Medrol Dosepak. Discharge planning today. Dr. Boyd did the examination, evaluation, management and orders. ANDIE did the scribing for Dr. Boyd according to his direction.
[2020-02-14] MEDS ORDERED: MEDROL DOSEPAK PO SCH (13:30)
[2020-02-14] MEDS: NS 1,000 ML IV SCH (14:03)
[2020-02-14] MEDS: PATIENT'S OWN MED PO SCH ×2 (14:06→18:51)
[2020-02-14] MEDS: LOVENOX SUBQ SCH ×2 (18:50→19:07)
[2020-02-14] MEDS: MEDROL PO SCH ×2 (19:06→23:34)
[2020-02-14] MEDS: MELATONIN PO SCH (20:56)
[2020-02-14] MEDS: FERROUS SULFATE PO SCH (20:56)
[2020-02-15] MEDS: LEVAQUIN 500 MG in NS 100 ML IV SCH (01:17)
[2020-02-15] MEDS: XOPENEX NEB INH PRN (03:30)
[2020-02-15] MEDS: ATROVENT NEB INH PRN (03:30)
[2020-02-15] MEDS: MERREM 1 GM in NS 50 ML IV SCH ×3 (04:01→19:57)
[2020-02-15] MEDS: HUMALOG SUBQ SCH ×4 (06:44→21:52)
[2020-02-15] MEDS: SYNTHROID PO SCH (06:45)
[2020-02-15] MEDS: LINZESS PO SCH (06:45)
[2020-02-15] MEDS: XOPENEX NEB INH SCH ×5 (07:27→22:38)
[2020-02-15] MEDS: ATROVENT NEB INH SCH ×5 (07:27→22:38)
--- NOTE | 2020-02-15 09:23 | PROGRESS NOTE ---
DATE: 02/15/2020 SUBJECTIVE: Ms. Hodge is just a little sad and blue. She was hoping to go home. She reports she really does not want to go to a prison or rehab facility and so were discussing with her son what her plans could be for discharge. He said she just had a home built in [place]. OBJECTIVE: Vital signs: She remains afebrile, temperature 97.8 degrees, pulse 95, respirations 14, blood pressure 170/80. HEENT: Pupils are equal and round. Lungs: Clear in all lung de paz. Cardiovascular: Regular rhythm and rate without murmur or S3. Abdomen: Soft. Skin: Warm and dry. ASSESSMENT AND PLAN: 1. Acute hypoxemic respiratory failure secondary to pneumonia, possible asthma exacerbation. She was Coronavirus Disease 2019 negative. Pneumonia has improved clinically. Air and gas exchange look good. CT scan angiogram done on 02/10/2020, questionable area of pulmonary emboli bilateral posterior lower lobes versus artifact, right lower lobe pneumonia, bilateral dependent atelectasis. 2. Asthma, chronic obstructive pulmonary disease exacerbation, which is improved. 3. Questionable emboli versus artifact motion. Venous ultrasound of the bilateral legs were negative so that was repeated and it was negative. No sign of deep venous thrombosis. 4. Presented with what appeared to be sepsis, tachycardia, tachypnea, fever, and underlying evidence of pneumonia. Blood cultures done on 02/07/2020 with no growth and urine culture from 02/08/2020 with no growth. 5. Schizoaffective disorder, anxiety. 6. General weakness, deconditioning. REVIEW OF HER ORDERS: She is on melatonin 5 mg at bedtime, guaifenesin ER 1200 mg p.o. q.12 hours, aspirin 81 mg a day, Lovenox 40 mg subcutaneous q.24 hours, iron 325 mg at bedtime, Neurontin 800 mg p.o. b.i.d., Lamictal 100 mg at bedtime and 100 mg in the morning, Synthroid 50 mcg p.o. daily, she is on meropenem 1 g IV q.8, and metformin 1000 mg p.o. b.i.d., getting normal saline at 75 mL an hour. REVIEW OF HER LAB: I do not see any changes. cc: Colby Willams MD
[2020-02-15] MEDS: GLUCOPHAGE PO SCH ×2 (09:47→17:47)
[2020-02-15] MEDS: NEURONTIN PO SCH ×2 (09:47→21:50)
[2020-02-15] MEDS: MUCINEX PO SCH ×2 (09:47→21:50)
[2020-02-15] MEDS: TOPROL XL PO SCH (09:47)
[2020-02-15] MEDS: LEVAQUIN PO SCH (09:48)
[2020-02-15] MEDS: VITAMIN B-12 PO SCH (09:48)
[2020-02-15] MEDS: MEDROL PO SCH ×4 (09:48→21:49)
[2020-02-15] MEDS: DULCOLAX PR SCH (09:49)
[2020-02-15] MEDS: ASPIRIN EC PO SCH (09:49)
[2020-02-15] MEDS: LAMICTAL PO SCH ×2 (09:49→21:50)
[2020-02-15] MEDS: TYLENOL PO PRN ×3 (09:51→21:53)
[2020-02-15] MEDS: PATIENT'S OWN MED PO SCH ×2 (16:37→16:48)
[2020-02-15] MEDS: NS 1,000 ML IV SCH ×2 (16:39)
[2020-02-15] MEDS: VANCOMYCIN 1,600 MG in NS 250 ML IV SCH (16:39)
[2020-02-15] MEDS: LOVENOX SUBQ SCH (16:48)
--- NOTE | 2020-02-15 17:42 | PULMONOLOGY PROGRESS NOTE ---
DATE: 02/15/2020 SUBJECTIVE: Ms. Hodge reports being sad today. She was hoping that she was going to get to go home. She is a little worried. She does not want to go to a [facility] or rehab facility, and she is aware this is being discussed. OBJECTIVE: Vital signs: Blood pressure is 170/80 with a heart rate of 95, respirations are 16 to 18, temperature is 97.8 degrees with room air saturations 94% to 96%. Eyes: Pupils are equal, round, react to light. EOMs are intact. Head: Normocephalic, atraumatic. ENT: Mucous membranes are moist. Neck: Supple with trachea midline. Cardiovascular: Regular rate and rhythm. S1 and S2 appreciated. No murmur. Pulmonary: Breath sounds are clear with no increased work of breathing noted. Chest rises and falls symmetric with respiration. Gastrointestinal: Abdomen is soft, nontender, nondistended with bowel sounds in all 4 quadrants. LABORATORY DATA: Blood sugar is 306. ASSESSMENT: This is a 54-year-old female with: 1. Acute hypoxemic respiratory failure secondary to pneumonia and possible asthma exacerbation with Coronavirus Disease 2019 test negative. 2. Pneumonia. 3. Questionable pulmonary emboli at bilateral posterior lower lobes versus artifacts from motion with bilateral lower extremity Doppler negative for deep venous thrombosis x2 test. Therefore, the patient was not treated. 4. Sepsis resolved. 5. 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 PLAN: 1. We will continue to monitor oxygen saturations. She has remained 93% to 95% on room air, but we will give supplemental oxygen as appropriate. 2. Continue antibiotics as per primary team. 3. Continue bronchodilators and pulmonary hygiene. 4. Continue steroids with Medrol Dosepak. 5. Continue Lovenox 40 mg daily. Dictated by ANDIE Gann for Jas Brown MD cc: ANDIE Gann MD
[2020-02-15] MEDS: FERROUS SULFATE PO SCH (21:50)
[2020-02-15] MEDS: MELATONIN PO SCH (21:50)
[2020-02-16] MEDS: VANCOMYCIN 1,600 MG in NS 250 ML IV SCH ×2 (00:44→19:56)
[2020-02-16] MEDS: NS 1,000 ML IV SCH ×2 (00:45→17:43)
[2020-02-16] MEDS: MERREM 1 GM in NS 50 ML IV SCH (03:26)
[2020-02-16] MEDS: LINZESS PO SCH (06:05)
[2020-02-16] MEDS: HUMALOG SUBQ SCH ×4 (06:05→21:46)
[2020-02-16] MEDS: SYNTHROID PO SCH (06:05)
[2020-02-16] MEDS: ATROVENT NEB INH SCH ×4 (07:46→19:46)
[2020-02-16] MEDS: XOPENEX NEB INH SCH ×4 (07:47→19:46)
[2020-02-16] MEDS ORDERED: ZOFRAN PO PRN (10:12)
--- NOTE | 2020-02-16 10:12 | PROGRESS NOTE ---
DATE: 02/16/2020 Ms. Hodge is sleeping, resting comfortably. She was easy to arouse. No new complaints. Still feels pretty weak. I think she is a little blue about the prospect of going to rehab. OBJECTIVE: Temperature 98.5 degrees, pulse 70, respirations 17, blood pressure 141/54. Pupils are equal and round. Lungs are clear in all lung de paz. Cardiovascular exam regular rate without murmur or S3. Urine output is 500 mL. Blood sugar 125, 209, 212. ASSESSMENT AND PLAN: 1. Acute hypoxemic respiratory failure secondary to pneumonia, possible asthma exacerbation. Her coronavirus test was negative. 2. Pneumonia, which is improving. I have switched her to p.o. antibiotics. 3. Questionable pulmonary emboli in the bilateral posterior lobe versus artifact from motion. Her venous Doppler studies were negative. 4. Sepsis, resolved. 5. Mixed Alzheimer's and vascular dementia. REVIEW OF HER ORDERS: She is on melatonin 5 mg at bedtime, getting guaifenesin ER 1200 mg p.o. q.12 hours, aspirin 81 mg a day, ferrous sulfate 325 mg a day, Neurontin 800 mg b.i.d., Lamictal 100 mg at bedtime and 100 mg in the morning. I have her on Levaquin 500 mg p.o. daily, Linzess 145 mcg p.o. daily. Still have her on meropenem 1 g q.8 hours and I am going to stop that. She is also on vancomycin 1600 mg IV q.12. Will stop both of those. cc: Colby Willams MD
[2020-02-16] MEDS ORDERED: ZOFRAN PO SCH (10:15)
[2020-02-16] MEDS: MUCINEX PO SCH ×2 (10:23→21:46)
[2020-02-16] MEDS: TYLENOL PO PRN ×2 (10:23→21:47)
[2020-02-16] MEDS: ASPIRIN EC PO SCH (10:23)
[2020-02-16] MEDS: MEDROL PO SCH ×5 (10:23→21:45)
[2020-02-16] MEDS: TOPROL XL PO SCH (10:24)
[2020-02-16] MEDS: LEVAQUIN PO SCH (10:24)
[2020-02-16] MEDS: GLUCOPHAGE PO SCH ×2 (10:24→17:41)
[2020-02-16] MEDS: VITAMIN B-12 PO SCH (10:24)
[2020-02-16] MEDS: LAMICTAL PO SCH ×2 (10:24→21:45)
[2020-02-16] MEDS: DULCOLAX PR SCH (10:25)
[2020-02-16] MEDS: PATIENT'S OWN MED PO SCH ×2 (17:42→17:44)
[2020-02-16] MEDS: LOVENOX SUBQ SCH (17:43)
[2020-02-16] MEDS: NEURONTIN PO SCH ×2 (19:56→21:45)
[2020-02-16] MEDS: FERROUS SULFATE PO SCH (21:45)
[2020-02-16] MEDS: MELATONIN PO SCH (21:45)
--- NOTE | 2020-02-16 22:11 | PULMONOLOGY PROGRESS NOTE ---
DATE: 02/16/2020 SUBJECTIVE: Ms. Hodge is sitting up in the bed. She has no specific complaints at this time. OBJECTIVE: Vital Signs: Blood pressure is 149/60 with a heart rate of 88, respirations are 18, temperature is 98.4 degrees with room air saturations 97 to 98 percent. Cardiovascular: Regular rate and rhythm. S1 and S2 appreciated. No murmur. Pulmonary: Breath sounds are clear with no increased work of breathing noted. Chest rises and falls symmetric respiration. Gastrointestinal: Abdomen soft, nontender, nondistended with bowel sounds in all 4 quadrants. Neurologic: She is alert and oriented. LABS: Blood sugar is 103. ASSESSMENT: This is a 54-year-old female with 1. Acute hypoxemic respiratory failure secondary to pneumonia and possible asthma exacerbation with Coronavirus Disease 2019 test negative. 2. Pneumonia. 3. Questionable pulmonary emboli at bilateral posterior lower lobes versus artifact from motion with bilateral lower extremity Doppler negative for deep vein thrombosis x2 tests. Therefore the patient was not treated. 4. Mixed Alzheimer and vascular dementia with behavioral disturbance. PLAN: 1. Continue to monitor oxygen. She is remaining 93 to 96 percent on room air. 2. Continue antibiotics as per primary team. 3. Continue pulmonary hygiene. 4. Continue Medrol Dosepak. 5. Continue Lovenox 40 mg daily. Dictated by ANDIE Gann for Jas Brown MD cc: ANDIE Gann MD
[2020-02-17] MEDS: ATROVENT NEB INH SCH ×6 (00:24→23:40)
[2020-02-17] MEDS: XOPENEX NEB INH SCH ×6 (00:24→23:41)
[2020-02-17] MEDS: NS 1,000 ML IV SCH ×2 (03:23→17:23)
[2020-02-17] MEDS: HUMALOG SUBQ SCH ×4 (06:15→20:50)
[2020-02-17] MEDS: LINZESS PO SCH (06:20)
[2020-02-17] MEDS: SYNTHROID PO SCH (06:21)
[2020-02-17] MEDS: LEVAQUIN PO SCH (08:42)
[2020-02-17] MEDS: GLUCOPHAGE PO SCH ×2 (08:42→17:20)
[2020-02-17] MEDS: ASPIRIN EC PO SCH (08:42)
[2020-02-17] MEDS: MUCINEX PO SCH ×2 (08:42→20:50)
[2020-02-17] MEDS: TOPROL XL PO SCH (08:42)
[2020-02-17] MEDS: NEURONTIN PO SCH ×2 (08:42→20:49)
[2020-02-17] MEDS: DULCOLAX PR SCH (08:43)
[2020-02-17] MEDS: MEDROL PO SCH ×3 (08:43→20:49)
[2020-02-17] MEDS: LAMICTAL PO SCH ×2 (08:43→20:49)
[2020-02-17] MEDS: VITAMIN B-12 PO SCH (08:43)
[2020-02-17] MEDS: TYLENOL PO PRN (08:52)
--- NOTE | 2020-02-17 12:38 | PROGRESS NOTE ---
DATE: 02/17/2020 SUBJECTIVE: Ms. Hodge said she rested well last night and she is okay, did not have any complaints. OBJECTIVE: Vital Signs: Temp 98.2 degrees, pulse 70, respirations 17, blood pressure 169/66. HEENT: Pupils are equal and round. Lungs: Clear in all lung de paz. Cardiovascular: Regular rhythm and rate without murmur or S3. Urine output is 4000 mL. ASSESSMENT AND PLAN: 1. Acute hypoxemic respiratory failure secondary to pneumonia and possible asthma exacerbation. Coronavirus Disease 2018 was tested and negative. 2. Pneumonia. 3. Questionable pulmonary emboli in the bilateral posterior lobes on CT scan. They did venous Doppler studies x2, and they were negative, and so the patient was not treated with anticoagulant. 4. Mixed Alzheimer's and vascular dementia. 5. Presented with what appeared to be sepsis, and this is resolved. 6. Nutrition is good. The plan is to try and get her to rehab, which she is not real happy about, but she should be ready for discharge tomorrow. REVIEW OF ORDERS: She is on melatonin 5 mg at bedtime, guaifenesin ER 1200 mg p.o. every 12 hours, aspirin 81 mg a day, Lovenox 40 mg subcutaneously every 24 hours, iron sulfate 325 mg at bedtime, gabapentin 400 mg p.o. b.i.d., Lamictal 100 mg in the morning and 100 mg at night, Levaquin 500 mg p.o. daily, Linzess 145 mg p.o. daily, metformin 1000 mg b.i.d., and getting normal saline at 75 mL an hour. cc: Colby Willams MD
[2020-02-17] MEDS: PATIENT'S OWN MED PO SCH ×2 (13:54→17:22)
[2020-02-17] MEDS: LOVENOX SUBQ SCH (17:21)
--- NOTE | 2020-02-17 17:56 | PULMONOLOGY PROGRESS NOTE ---
DATE: 02/17/2020 SUBJECTIVE: Ms Hodge is sitting up in the bed. She denies any complaints. OBJECTIVE: Vital Signs: Blood pressure is 159/64 with heart rate of 85, respirations 17, temperature 98.3 degrees with room air saturations 96 to 100 percent. Cardiovascular: Regular rate and rhythm. S1 and S2 are appreciated, no murmur. Pulmonary: Breath sounds are clear. No increased work of breathing noted. Chest rises and falls symmetric respiration. Gastrointestinal: Abdomen soft, nontender, nondistended with bowel sounds in all 4 quadrants. Neurologic: She is alert and oriented. ASSESSMENT: This is a 54-year-old female with 1. Acute hypoxemic respiratory failure secondary to pneumonia and possible asthma exacerbation with Coronavirus Disease 2019 test negative. 2. Pneumonia. 3. Questionable pulmonary emboli at bilateral posterior lobes versus artifact from motion with bilateral lower extremity Doppler negative for deep vein thrombosis x2 tests. Therefore the patient was not treated. 4. Mixed Alzheimer and vascular dimension with behavioral disturbance. PLAN: 1. Continue to monitor oxygen levels. 2. Continue antibiotics as per primary team. 3. Continue pulmonary hygiene. 4. Continue Medrol Dosepak. 5. Continue Lovenox 40 mg daily. Dictated by ANDIE Gann for Jas Brown MD cc: ANDIE Gann MD
[2020-02-17] MEDS: MELATONIN PO SCH (20:49)
[2020-02-17] MEDS: FERROUS SULFATE PO SCH (20:49)
[2020-02-18] MEDS: SYNTHROID PO SCH (06:21)
[2020-02-18] MEDS: HUMALOG SUBQ SCH ×3 (06:21→17:34)
[2020-02-18] MEDS: LINZESS PO SCH (06:21)
[2020-02-18] MEDS: NS 1,000 ML IV SCH (06:21)
[2020-02-18] MEDS: XOPENEX NEB INH SCH ×3 (07:46→15:13)
[2020-02-18] MEDS: ATROVENT NEB INH SCH ×3 (07:47→15:13)
[2020-02-18] MEDS: LAMICTAL PO SCH (08:30)
[2020-02-18] MEDS: ASPIRIN EC PO SCH (08:30)
[2020-02-18] MEDS: GLUCOPHAGE PO SCH ×2 (08:30→17:35)
[2020-02-18] MEDS: LEVAQUIN PO SCH (08:31)
[2020-02-18] MEDS: MUCINEX PO SCH (08:31)
[2020-02-18] MEDS: MEDROL PO SCH (08:31)
[2020-02-18] MEDS: NEURONTIN PO SCH (08:31)
[2020-02-18] MEDS: VITAMIN B-12 PO SCH (08:31)
[2020-02-18] MEDS: DULCOLAX PR SCH (08:31)
[2020-02-18] MEDS: TOPROL XL PO SCH (08:31)
[2020-02-18] MEDS ORDERED: NEXIUM PACKET PO SCH (09:30)
--- NOTE | 2020-02-18 09:37 | PROGRESS NOTE ---
DATE: 02/18/2020 SUBJECTIVE: Ms. Hodge is sleeping, resting comfortably. Says she just does not feel good. She just hurts all over, hurts in her legs. She is able to walk to the bathroom. She remains afebrile. OBJECTIVE: Vital Signs: Temperature 98.3 degrees, pulse 78, respirations 18, blood pressure 139/55. Eyes: Pupils are equal and round. Lungs: Clear in all lung de paz. Cardiovascular exam: Regular rhythm and rate without murmur or S3. Abdomen: Abdomen is soft. Skin: Skin is warm and dry. : Urine output was not recorded. Blood sugars 122, 227, 193. ASSESSMENT AND PLAN: 1. Acute hypoxemic respiratory failure secondary to pneumonia and possible asthma exacerbation. Her Coronavirus Disease 2019 was negative. 2. Pneumonia, which is resolving. 3. She had questionable signs of pulmonary emboli on her CT scan, but she had 2 lower extremity Doppler studies that were negative. No sign of pulmonary embolus clinically. 4. Mixed history of questionable Alzheimer and vascular dementia. 5. General weakness, deconditioning. She is complaining of chronic nausea, so I am going to make sure she is on proton pump inhibitor regularly. Continue to encourage physical therapy. She is getting normal saline at 75 mL an hour. She was very hopeful. She is going to get to go home with her son, but they are looking for rehabilitation opportunities; I think she is very discouraged about that. She is on Neurontin 400 mg twice a day, ferrous sulfate 325 mg at bedtime, aspirin 81 mg a day, guaifenesin ER 1200 mg p.o. q. 12 hours, vitamin B 12 500 mcg p.o. daily, Dulcolax 10 mg per rectum suppository daily. She is on ipratropium bromide, breathing treatments, Lamictal 100 mg twice a day and getting Levaquin 500 mg p.o. daily, Synthroid 50 mcg p.o. daily, Linzess 145 mcg p.o. daily, metformin 1000 mg b.i.d. Her blood sugars appear to be well controlled. I will put her on some Nexium 40 mg daily and see if it will help with the nausea. Encouraged her to pursue physical therapy. We will get Occupational Therapy involved as well. cc: Colby Willams MD
[2020-02-18] MEDS: TYLENOL PO PRN (12:08)
[2020-02-18 12:13] VITALS: BP 131/70
--- NOTE | 2020-02-18 15:13 | PROVIDER PROGRESS NOTE ---
Progress Note Dr. Boyd Progress Note/Pulmonary and or critical care Subjective: Patient is lying in bed on room air. She appears depressive with flat affect. She is complaining of feet burning and ongoing occasional dry cough. Objective: Vital Signs: T 98.3 (no fever in last 24 hours), IN 78, RR 18, BP 139/55 and SaO2 98% on room air. Physical Examination: General: Lying in bed with no acute distress noted. HEENT: Atraumatic. Normocephalic. Trachea midline. Respiratory: Even and unlabored. No increased work of breathing or accessory muscle use noted. Symmetrical excursion. Clear to auscultation bilaterally. Cardiovascular: S1 and S2 appreciated. Gastrointestinal: Soft. Nondistended. Normoactive bowel sounds in all 4 quadrants. Extremities: No pedal edema. No clubbing or cyanosis noted. Neurologic: Awake and alert. Flat affect. Answer simple questions. Follow simple commands. Labs and Radiology: Laboratory Results 02/17/20 02/17/20 02/18/20 15:31 20:08 05:31 POC Glucose 227 H D 150 H 193 H 02/18/20 10:55 POC Glucose 199 H Assessment: Acute hypoxemic respiratory failure secondary to pneumonia and possible asthma exacerbation. COVID-19 negative. Improved. Pneumonia. COVID-19 negative. CTPA on 02/10/20 revealed questionable pulmonary emboli at bilateral posterior lower lobes vs. artifacts from motion, RLL pneumonia and bilateral dependent atelectasis. Asthma or COPD exacerbation. Questionable pulmonary emboli vs. artifacts from motion. Venous US Bilateral legs are negative for two different tests. Sepsis with elevated lactate, tachycardia, tachypnea, and fever on presentation. Resolved. Blood cultures on 02/07/20 have no growth after 48 hours. Urine culture on 02/08/20 has no growth. Mixed Alzheimer and vascular dementia with behavioral disturbance. Plan: Continue supplemental oxygen as needed. Continue antibiotic Levaquin. Continue bronchodilators to promote pulmonary hygiene. Continue Enoxaparin 40mg qd. Continue Medrol Dosepak. Discharge planning.
--- NOTE | 2020-02-18 15:42 | DISCHARGE SUMMARY ---
ADMISSION DATE: 02/08/2020 DISCHARGE DATE: 02/18/2020 HISTORY: This is a 54-year-old. She has no primary care physician. She was at [facility], had low oxygen levels per [facility], and was sent over here. This is a 54-year-old female presented to [facility] complaining of shortness of breath on 02/07/2020, was saturating around 74% on room air and on 15 L face mask, I believe, she was at 90%, using accessory muscles. When weaned off to room air she desaturated to 81%. The patient had altered mental status while at [facility] and was not able to give much information. She was put in 4 point restraints because she started pulling out her lines. She was found to have right lower lobe pneumonia, suspected respiratory tract infection. She was tested for COVID-19. She was placed on BiPAP with special filter and initiated on vancomycin and Levaquin empirically due to her multiple allergies and treating her for a COPD exacerbation. PAST MEDICAL HISTORY: Diabetes mellitus, anemia, hypothyroidism, and diabetic neuropathy. ADMISSION DIAGNOSES: 1. Acute hypoxemic respiratory failure secondary to pneumonia, chronic obstructive pulmonary disease exacerbation, and possible Coronavirus Disease 2019. Was put on BiPAP and albuterol inhaler. Pulmonary was consulted. 2. Rule out Coronavirus Disease 2019. 3. Right lower lobe pneumonia, suspected. 4. Possibility of early sepsis as she has a positive lactate elevation. Put her on empiric vancomycin and Levaquin. 5. Diabetes mellitus type 2. Sugars we plan to follow and check a hemoglobin A1c. 6. Anemia, stable. 7. Hypothyroidism history. Appeared to be euthyroid or normal thyroid on admission. 8. Diabetic neuropathy. 9. Mild hyponatremia. HOSPITAL COURSE: The patient had a chest x-ray on 02/06 which was negative. Pulmonary was consulted. They felt she had acute hypoxemic respiratory failure secondary to possible pneumonia and bronchitis. She improved significantly with some supplemental O2 and bronchodilators. Possibility of early sepsis. The lactate seemed to be trending down and she improved. Sugars were followed. She had a pulmonary CT or pulmonary angiogram, questionable pulmonary emboli bilateral lower lobes. So we did noninvasive venous studies twice and they were negative for deep venous thrombosis or superficial thrombosis. She had an echocardiogram on 02/10 and it showed an ejection fraction of 75%. No significant valvular dysfunction and no pericardial effusion or pericardial process. Venous studies were done 02/10 and 02/12, both of them negative. She showed some improvement and her COVID-19 test was negative. There was a history in there of a history of possible Alzheimer's and mixed vascular dementia. She seemed to be awake, alert, oriented, and very cooperative. She was hoping to go home, but she was very weak and so felt like she needed to go to physical therapy. Her son wanted her to go to physical therapy, so we arranged for her to go to physical therapy in [place]. Appetite was poor. She was complaining of some nausea, but was getting food down. DISCHARGE MEDICATIONS: She will be discharged on aspirin 81 mg a day, vitamin B12 500 mcg p.o. daily. She was getting Lovenox while she was here. We will stop the Lovenox. She is on Nexium 40 mg a day, which I started for possible gastritis, ferrous sulfate 325 mg at bedtime, Neurontin 400 mg b.i.d., Mucinex 1200 mg p.o. twice a day, Lamictal 100 mg twice a day, Levaquin 500 mg a day which we can stop, Synthroid 50 mcg p.o. daily, Linzess 145 mg a day, melatonin 5 mg at bedtime, Glucophage 1000 mg p.o. b.i.d., Toprol-XL 25 mg a day. She is on clozapine 50 mg a day at 12 o'clock and 125 mg at 17:00, so we will continue that. Hylton catheter is out and she does not need any supplemental O2. cc: Colby Willams MD
[2020-02-18] MEDS: PATIENT'S OWN MED PO SCH ×2 (17:34)
[2020-02-18] MEDS: LOVENOX SUBQ SCH (17:35)
== END 2020-02-18 17:54 | DRG 871 ==
LOC: P.ED 23:05 → 2N 02-08 03:56 → SUATTDRO 02-08 03:56 → 4N 02-09 15:23 → ICU 02-10 10:05 → 3N 02-12 12:02
PROVIDERS: ATTEND Emergency Medicine